=== PATIENT | male | born 1950 | race Caucasian/White ===

== ENCOUNTER → 2016-09-07 | Outpatient (CLI) | payer BC ==
[~2016-09-07] MED LIST: ALFU10TA30 PO; ALLO1TAB51 PO; ASCO10003 PO; CALC500T83 PO; CHOL1TAB4 PO; CHOL4POW12 PO; COENCAP9 PO; GLUC1TAB22 PO; GREE315C PO; MAGN400T5 PO; MULT-845 PEG; NSNN50 NAE; NXM/40 PO; OMEG12006 PO; POTA99TA PO; [UNRECOGNIZED DRUG - CODE] PO; vit b12 PO
[2016-09-07 14:21] LABS: BASO % 0.6 %; BASO ABS # 0.04 K/uL (0-0.2); COMPLETE YES; EOS % 3.4 %; HEMATOCRIT 46.5 % (42-52); IG% 0.3 %; LYMPH % 22.4 %; LYMPH ABS # 1.58 K/uL (1.2-3.4); MEAN CELL VOLUME 86.9 fL (80-100); MEAN CORPUSCULAR HEMOGLOBIN 30.1 pg (25-34); MEAN CORPUSCULAR HGB CONC 34.6 g/dl (32-36); MEAN PLATELET VOLUME 10.7 fL (7.4-10.4); MONO % 7.1 %; NEUT % 66.2 %; PLATELET COUNT 240 K/uL (130-400); RED BLOOD COUNT 5.35 M/uL (4.7-6.1); WHITE BLOOD COUNT 7.04 K/uL (4.8-10.8)
[2016-09-07 14:30] LABS: ALT/SGPT 31 U/L (12-78); BLOOD UREA NITROGEN 16 mg/dl (7-18); BUN/CREATININE RATIO 14.1 (10-20); CALCIUM 9.5 mg/dl (8.5-10.1); CARBON DIOXIDE 29 mmol/L (21-32); CHLORIDE 103 mmol/L (98-107); CHOLESTEROL 203 mg/dl (0-200); GLUCOSE 103 mg/dl (70-99); POTASSIUM 4.5 mmol/L (3.5-5.1); SODIUM 141 mmol/L (136-145); URIC ACID 4.4 mg/dl (2.6-7.2)
[2016-09-07 14:33] LABS: ALB/GLOB RATIO 1.1 (0.9-2); ALKALINE PHOSPHATASE 76 U/L (45-117); AST/SGOT 20 U/L (15-37); CHOLESTEROL/HDL RATIO 4.3; HDL CHOLESTEROL 47 mg/dl; LDL CHOLESTEROL CALCULATED 117 mg/dl; TRIGLYCERIDES 193 mg/dl (0-150); VERY LOW DENSITY LIPOPROT CALC 39 mg/dl
== END | disposition home or self-care (01) ==
LOC: C.LABBC 09:53
PROVIDERS: ATTEND Internal Medicine Geriatric Medicine
DX: M10.9 Gout, unspecified (principal); K21.9 Gastro-esophageal reflux disease without esophagitis; M19.90 Unspecified osteoarthritis, unspecified site; E78.5 Hyperlipidemia, unspecified; I10 Essential (primary) hypertension; R73.9 Hyperglycemia, unspecified

== ENCOUNTER → 2017-11-23 | Outpatient (CLI) | payer OTHER ==
[~2017-11-23] MED LIST changes: +ALFU10TA2 PO; -ALFU10TA30 PO
== END | disposition home or self-care (01) ==
LOC: C.LABBC 09:31
PROVIDERS: ATTEND Specialist
DX: R97.20 Elevated prostate specific antigen [PSA] (principal)

== ENCOUNTER → 2018-02-02 | Outpatient (CLI) | payer OTHER ==
[~2018-02-02] MED LIST changes: +OPTIRAY 320 IV PRN
--- NOTE | 2018-02-02 10:32 | DIAGNOSTIC IMAGING REPORT ---
ABD/PELVIS IV AND ORAL CONT CLINICAL HISTORY: 67 years-old Male presenting with R10.32 Abdominal discomfort in left lower quadrant. TECHNIQUE: Multidetector CT of the abdomen and pelvis was performed after the administration of oral and intravenous contrast. IV contrast: 94 mL of Optiray 320. A dose lowering technique was used consistent with the principles of ALARA (as low as reasonably achievable). COMPARISON: 10/29/2014. CT DOSE (mGy.cm): The estimated cumulative dose is 399.46 mGy.cm. FINDINGS: Segment Producer topogram: Unremarkable. Lung bases: Minimal basilar opacities, likely atelectasis. Trace bilateral pleural effusions. Multichamber enlargement of the heart. Coronary artery calcification. No pericardial effusion. Liver: Normal morphology. No liver lesion. Patent hepatic vasculature. Biliary: No intrahepatic or extrahepatic biliary ductal dilatation. Normal gallbladder. Pancreas: Mild parenchymal atrophy. Spleen: Normal. Adrenal glands: Normal. Kidneys and ureters: Normal. No hydronephrosis. Bladder: Circumferential bladder wall thickening. Pelvic organs: Prostate enlargement likely secondary to benign prostatic hyperplasia. Bowel: Limited diverticulosis of the distal sigmoid colon. Mild stool burden noted throughout the normal caliber colon. The appendix is normal. No bowel obstruction. Peritoneal cavity: No free fluid or intraperitoneal gas. Lymph nodes: No enlarged lymph nodes in the abdomen or pelvis. Vasculature: Atherosclerosis of the normal caliber abdominal aorta. IVC patent. Abdominal wall: Bilateral gynecomastia. Musculoskeletal: Degenerative changes of the spine. IMPRESSION: 1. Bibasilar atelectasis with trace bilateral pleural effusions. 2. No acute intra-abdominal pathology. Specifically, the left lower quadrant and is normal appearing. 3. Limited diverticulosis. No evidence of diverticulitis. 4. Chronic bladder outlet obstruction from prostatomegaly. Electronically signed by: Tom Lorenzana M.D. 02/02/2018 10:31 AM Dictated Date/Time: 02/02/2018 10:25 AM
== END | disposition home or self-care (01) ==
LOC: C.CTS 09:55
PROVIDERS: ATTEND Nurse Practitioner Adult Health
DX: R10.32 Left lower quadrant pain (principal); J98.11 Atelectasis; J90 Pleural effusion, not elsewhere classified; K57.90 Diverticulosis of intestine, part unspecified, without perforation or abscess without bleeding; N40.1 Benign prostatic hyperplasia with lower urinary tract symptoms

== ENCOUNTER 2024-04-08 17:54 | Inpatient (IN) ==
[2024-04-08 18:46] LABS: Basophils # (auto) 0.05 K/uL (0.00-0.20); Basophils % (auto) 0.4 %; Eosinophils # (auto) 0.35 K/uL (0.00-0.50); Eosinophils % (auto) 2.8 %; Hematocrit (blood only) 39.3 % (42.0-52.0); Hemoglobin 13.3 g/dl (14.0-18.0); Immature Granulocytes # (auto) 0.04 K/uL (0.01-0.20); Immature Granulocytes % (auto) 0.3 %; Lymphocytes # (auto) 1.34 K/uL (1.20-3.40); Lymphocytes % (auto) 10.7 %; Mean Corpuscular Hemoglobin 29.8 pg (25.0-34.0); Mean Corpuscular Hgb Conc 33.8 g/dL (32.0-36.0); Mean Corpuscular Volume 87.9 fL (80.0-100.0); Mean Platelet Volume 10.5 fL (9.4-12.4); Monocytes # (auto) 1.45 K/uL (0.11-0.59); Monocytes % (auto) 11.6 %; Neutrophils # (auto) 9.28 K/uL (1.40-6.50); Neutrophils % (auto) 74.2 %; Platelet Count 213 K/uL (130-400); RDW Coefficient of Variation 14.5 % (11.5-14.5); RDW Standard Deviation 46.8 fL (36.4-46.3); Red Blood Count 4.47 M/uL (4.70-6.10); White Blood Count 12.51 K/ul (4.8-10.8)
[2024-04-08 19:29] LABS: Alanine Aminotransferase 4 U/L (7-52); Albumin Globulin Ratio 1.6 (0.9-2); Albumin Level 4.3 gm/dl (3.4-5.0); Alkaline Phosphatase 65 U/L (34-104); Anion Gap 12 (3-11); Aspartate Aminotransferase 24 U/L (13-39); BUN Creatinine Ratio 10.1 (10-20); Bilirubin,Total 0.5 mg/dl (0.2-1.0); Blood Urea Nitrogen 77 mg/dl (6-23); Calcium 9.8 mg/dl (8.6-10.3); Carbon Dioxide 24 mmol/L (21-32); Chloride 96 mmol/L (98-107); Est GFR (African American) 7.3 ml/min; Est GFR (Non-African American) 6.3 ml/min; Globulin 2.7 gm/dl (2.5-4.0); Glucose 103 mg/dl (70-99(Fasting)); Potassium 5.7 mmol/L (3.5-5.1); Sodium 132 mmol/L (136-145)
[2024-04-08] MEDS: CEFEPIME 2,000 MG/20 ML VIAL IV STA (19:35)
[2024-04-08] MEDS: SODIUM CHLORIDE 0.9% 1,000 ML IV ONE (19:36)
[2024-04-08] MEDS: LIDOCAINE 2% JELLY 5 ML TUBE EXT ONE ×2 (19:36)
[2024-04-08 19:44] LABS: Magnesium 3.5 mg/dl (1.7-2.4)
--- NOTE | 2024-04-08 19:45 | Emergency Department Note ---
Impression & Plan ARF (acute renal failure), Acute urinary obstruction, Leukocytosis, Edema of penis, Acute hyperkalemia ED Provider Note NAME: FIORELLA KNOWLES AGE: 73 SEX: M : 1950 ARRIVES VIA: Walk-In INFORMANT: [Patient][] ED PROVIDER(S): [Gabriel Freed MD] CHIEF COMPLAINT: Unable to void HISTORY OF PRESENT ILLNESS: The patient is a 73-year-old male with a history of enlarged prostate. As per his , he was tired, sleepy, seemed short of breath and was just not quite himself for the last several days. The patient did notice a swelling to his groin and penis. He went to the family doctor's office and was prescribed Bactrim for a UTI. He has been on Bactrim for about 3 days. As per the patient and his , he is unable to void. He feels he has to go but really cannot make any urine. There has been no flank pain, no fever, no chills or cough. No shortness of breath. He has never in the past required a Ugarte catheter. PMHx/PSHx/Social Hx: See Below PHYSICAL EXAM: GENERAL: Patient is in no acute distress. HEENT: No acute trauma, normocephalic atraumatic, mucous membranes moist, no nasal congestion. NECK: No stridor, no adenopathy, no meningismus, trachea is midline. LUNGS: Clear to auscultation bilaterally, no wheeze, no rhonchi, breath sounds equal. Breath sounds diminished bilaterally. HEART: Without murmurs gallops or rubs, regular rate and rhythm. ABDOMEN: Soft, tender in the area of the bladder. No upper abdominal discomfort. EXTREMITIES: No cyanosis, full range of motion of all the joints without pain or difficulty. NEUROLOGIC: Oriented x 3, no acute motor or sensory deficits, no focal weakness. SKIN: No jaundice, no diaphoresis. Groin: He has scrotal and penile edema no warmth or erythema to suggest cellulitis. DIFFERENTIAL DIAGNOSIS: Urinary obstruction, renal failure, dehydration, electrolyte amounts, UTI, cellulitis, among others. EMERGENCY DEPARTMENT PROCEDURES: MEDICAL DECISION MAKING: There is a mild leukocytosis, this could be consistent with infection or the stress of his presentation. A mild anemia was seen. There was a normal platelet count. There was evidence for acute renal failure with a creatinine of 7.63. Potassium was mildly elevated at 5.7. Sodium somewhat low at 132. Lactic acid level was not elevated making severe sepsis unlikely. There was no concerning liver enzyme elevation. Urinalysis did not show findings of infection. Abdominal and pelvis CT showed some hydronephrosis but there was no obvious urinary obstruction. The Ugarte catheter was in position and the bladder was decompressed. The prostate was quite enlarged by CT imaging. On exam, the patient did have some penile edema. He was not toxic, he was not febrile. The patient was aggressively managed. Urethral lidocaine was ordered. The patient had a Ugarte catheter placed, significant urine did drain. He received 1.5 L of IV saline for hydration. He was given IV cefepime as antibiotic coverage. The patient is in acute renal failure from a urinary obstruction. The obstruction has been relieved. He will require a hospital stay for fluid hydration and monitoring. I spoke with the patient and case management. The on-call hospitalist was consulted. Prior/Outside records/notes reviewed: None Imaging/x-ray results per my interpretation: Chronic Medical/Social conditions affecting care: Advanced age, history of enlarged prostate. Care/Management discussed with: Case management, the on-call hospitalist. Level of care consideration(s): After review of the information above and other included data: --I believe the patient requires escalation of care to admission Critical Care Note: I have personally spent 39 minutes of critical care time in the direct management of this patient. This includes bedside care, interpretation of diagnostic studies, and testing, discussion with consultants, patient, and family members, and other required patient management activities. This 39 minutes is in excess of all separately billable procedures. DISPOSITION: Admission Past Med/Surg History Problem List (Updated 04/08/24 @ 21:45 by Gabriel Freed MD) Acute hyperkalemia (Acute) Edema of penis (Acute) Leukocytosis (Acute) Acute urinary obstruction (Acute) ARF (acute renal failure) (Acute) Agatston coronary artery calcium score greater than 400 Gait disturbance Statin myopathy Health care maintenance Right thyroid nodule Restrictive airway disease Low ferritin Allergic rhinitis with postnasal drip Kyphosis Hypersomnia RLS (restless legs syndrome) Insomnia Excessive daytime sleepiness SOBOE (shortness of breath on exertion) Nocturnal hypoxemia Sleep disturbance Elevated blood pressure reading with diagnosis of hypertension Hyperglycemia Osteoarthritis (Acute) Aortic atherosclerosis Lumbar back pain Lichen simplex chronicus GERD (gastroesophageal reflux disease) Chronic acid suppression with PPI. EGD (2009) mild gastritis. Hx peptic ulcer disease. Hyperlipidemia Sialolithiasis Essential tremor BPH (benign prostatic hyperplasia) Hx urinary retention. Followed by urology (Dr. [place], [place]). Chronically elevated PSAs, biopsy (2005) negative for malignancy. Managed medically with dutasteride Gout Parkinson disease (Acute) Coronary artery calcification (Acute) - CT study performed 03/27/2019: Calcium score 1104. angiography suggested 25-49 percent stenosis of the proximal and mid RCA. Calcium score in the LAD with 715, calcium score in the RCA was 387 the mid LAD was not evaluated due to heavy calcification. - Negative stress test 2019 - No ischemia on 2020 stress test but did not reach target HR Medical History Right inguinal hernia Cough 08/04/23- contines to have lingering cough but is improving. recently treated w/ Augmentin; completed abx 08/03/23 per pt (tested negative for Covid, flu and RSV on 07/27/23) Poor historian very difficult to understand History of shingles History of Lyme disease hx- treated Dyslipidemia History of peptic ulcer disease Eczema Hypertension Surgical History H/O right inguinal hernia repair (08/19/23) Hx of colonoscopy Hx of hernia repair H/O prostate biopsy Family History Father Heart disease Gout Myocardial infarction Mother Breast cancer Denies family history of Colon cancer Ovarian cancer Prostate cancer Social History Smoking Status: Unknown if ever smoked Second Hand Exposure: No; Do You Dip or Chew Tobacco: No; Hx Alcohol Use: Yes Hx Substance Use: No Preferred Language: Kyrgyz Communication Ability: Effective Visual Impairment: No Limitations Hearing Ability: Normal Crackling Press Operator Required: No Beliefs That Will Affect Care: None marital status: Current Living Situation: Spouse current occupational status: employed current occupation: Professor Feels Safe at Home: Yes Childhood Exposure to Second-Hand Smoke: No Dental Care, Regularly: Yes Physical Activity Frequency: Daily Seatbelt Use: always Sunscreen Use: Yes Assistive Devices: Glasses Allergies Allergies Allergy/AdvReac Type Severity Reaction Status Date / Time atorvastatin Allergy Unknown Muscle Pain Verified 04/05/24 15:38 procaine Allergy Unknown unknown Verified 04/05/24 15:38 simvastatin Allergy Unknown Muscle Pain Verified 04/05/24 15:38 Home Meds Home Medications Medication Instructions Recorded Confirmed multivit with min-folic 1 tab PO QAM 02/08/19 04/05/24 acid-lutein 400 mcg-250 mcg chewable tablet (Centrum Silver) calcium carbonate 600 mg PO QAM 02/13/19 04/05/24 cholecalciferol (vitamin D3) 125 5,000 units PO QAM 02/13/19 04/05/24 mcg (5,000 unit) capsule cyanocobalamin (vitamin B-12) 100 100 mcg PO QAM 02/13/19 04/05/24 mcg tablet dutasteride 0.5 mg capsule 0.5 mg PO HS 02/13/19 04/05/24 magnesium oxide 400 mg (241.3 mg 400 mg PO HS 02/13/19 04/05/24 magnesium) tablet ascorbate calcium (vitamin C) 500 500 mg PO QAM 11/27/20 04/05/24 mg tablet ferrous sulfate 325 mg (65 mg 325 mg PO DAILY 11/27/20 04/05/24 iron) tablet glucosamine HCl 1,500 mg tablet 1,500 mg PO BID 11/27/20 04/05/24 terazosin 10 mg capsule 10 mg PO BID 11/27/20 04/05/24 selegiline HCl 5 mg capsule 5 mg PO QAM 11/03/22 04/05/24 aspirin 81 mg tablet,delayed 81 mg PO QAM 11/20/22 04/05/24 release carbidopa 25 mg-levodopa 100 mg 1 tab PO Q4H 11/20/22 04/05/24 tablet acetaminophen 500 mg tablet 500 mg PO Q6H PRN Pain 11/25/22 04/05/24 docusate sodium 100 mg capsule 100 mg PO BID 11/25/22 04/05/24 allopurinol 100 mg tablet 200 mg PO HS 09/26/23 04/05/24 famotidine 40 mg tablet 40 mg PO HS 09/26/23 04/05/24 Previous Rx's Medication Instructions Recorded econazole 1 % topical cream 1 appln topical DAILY PRN itching 07/02/19 #15 grams fluocinonide 0.1 % topical cream 1 appln topical BID PRN itching 07/02/19 #60 grams Incentive Spirometer #1 ea 11/11/20 mometasone 50 mcg/actuation nasal 2 spray intranasal DAILY #3 BTLS 04/11/23 spray ezetimibe 10 mg tablet 10 mg PO QAM #90 tabs 10/03/23 esomeprazole magnesium 40 mg 40 mg PO BID #180 caps 02/07/24 capsule,delayed release evolocumab 140 mg/mL subcutaneous 140 mg subcut Q14D #2 mL 03/06/24 pen injector (Lily Garner) sulfamethoxazole 800 1 tab PO BID 7 days #14 tabs 04/05/24 mg-trimethoprim 160 mg tablet (Bactrim DS) Results & Data (ED) Vital Signs Vital Signs - 24 hr 04/08/24 18:08 04/08/24 19:34 04/08/24 19:42 Temperature 36.5 C Temperature Source Temporal Artery Scan Pulse Rate 82 76 Pulse Rate [Apical] 70 Pulse Rate from SpO2 Sensor 77 Pulse Rhythm Regular Pulse Rhythm [Apical] Regular Respiratory Rate 20 18 21 Respiratory Effort / Characteristics Non-Labored Spontaneous Non-Labored Spontaneous Respiratory Depth Normal Normal Respiratory Pattern Regular Blood Pressure 124/78 Blood Pressure [Right Arm] 129/73 Blood Pressure Mean 93 Blood Pressure Mean [Right Arm] 91 Pulse Oximetry 97 91 91 Oxygen Delivery Method Room Air Room Air Sepsis Recent Fever Within 48 Hours No Sepsis New/Unexplained Change in Mental Status No Sepsis Action Taken by Nursing No Action Required 04/08/24 19:53 04/08/24 20:12 04/08/24 20:15 Temperature Temperature Source Pulse Rate 77 80 Pulse Rate [Apical] Pulse Rate from SpO2 Sensor 77 80 Pulse Rhythm Pulse Rhythm [Apical] Respiratory Rate 18 16 Respiratory Effort / Characteristics Respiratory Depth Respiratory Pattern Blood Pressure 143/76 H Blood Pressure [Right Arm] Blood Pressure Mean 107 Blood Pressure Mean [Right Arm] Pulse Oximetry 93 92 Oxygen Delivery Method Sepsis Recent Fever Within 48 Hours Sepsis New/Unexplained Change in Mental Status Sepsis Action Taken by Nursing 04/08/24 20:30 04/08/24 20:39 04/08/24 20:47 Temperature Temperature Source Pulse Rate 84 82 Pulse Rate [Apical] Pulse Rate from SpO2 Sensor 82 82 Pulse Rhythm Pulse Rhythm [Apical] Respiratory Rate 22 20 Respiratory Effort / Characteristics Respiratory Depth Respiratory Pattern Blood Pressure 131/75 Blood Pressure [Right Arm] Blood Pressure Mean 89 Blood Pressure Mean [Right Arm] Pulse Oximetry 92 91 Oxygen Delivery Method Sepsis Recent Fever Within 48 Hours Sepsis New/Unexplained Change in Mental Status Sepsis Action Taken by Nursing 04/08/24 20:51 04/08/24 21:00 Temperature Temperature Source Pulse Rate 81 Pulse Rate [Apical] 84 Pulse Rate from SpO2 Sensor 81 Pulse Rhythm Pulse Rhythm [Apical] Respiratory Rate 18 19 Respiratory Effort / Characteristics Respiratory Depth Respiratory Pattern Blood Pressure Blood Pressure [Right Arm] 128/74 Blood Pressure Mean Blood Pressure Mean [Right Arm] 92 Pulse Oximetry 92 97 Oxygen Delivery Method Sepsis Recent Fever Within 48 Hours Sepsis New/Unexplained Change in Mental Status Sepsis Action Taken by [facility] Medications Current Medication List: was personally reviewed by me Laboratory Data Attestation: I reviewed the patient's lab results. 04/08/24 18:31 04/08/24 18:31 Lab Results 04/08/24 04/08/24 04/08/24 Range/Units 18:31 19:24 19:27 WBC 12.51 H (4.8-10.8) K/ul RBC 4.47 L (4.70-6.10) M/uL Hgb 13.3 L (14.0-18.0) g/dl Hct 39.3 L (42.0-52.0) % MCV 87.9 (80.0-100.0) fL MCH 29.8 (25.0-34.0) pg MCHC 33.8 (32.0-36.0) g/dL RDW Std Deviation 46.8 H (36.4-46.3) fL RDW Coeff of Dwayne 14.5 (11.5-14.5) % Plt Count 213 (130-400) K/uL MPV 10.5 (9.4-12.4) fL Immature Gran % (Auto) 0.3 % Neut % (Auto) 74.2 % Lymph % (Auto) 10.7 % Anderson % (Auto) 11.6 % Eos % (Auto) 2.8 % Baso % (Auto) 0.4 % Neut # (Auto) 9.28 H (1.40-6.50) K/uL Lymph # (Auto) 1.34 (1.20-3.40) K/uL Anderson # (Auto) 1.45 H (0.11-0.59) K/uL Eos # (Auto) 0.35 (0.00-0.50) K/uL Baso # (Auto) 0.05 (0.00-0.20) K/uL Immature Gran # (Auto) 0.04 (0.01-0.20) K/uL Sodium 132 L (136-145) mmol/L Potassium 5.7 H (3.5-5.1) mmol/L Chloride 96 L (98-107) mmol/L Carbon Dioxide 24 (21-32) mmol/L Anion Gap 12 H (3-11) BUN 77 H (6-23) mg/dl Creatinine 7.63 H* (0.6-1.4) mg/dl Est Cr Clr Drug Dosing Not Reportable Est GFR ( Amer) 7.3 ml/min Est GFR (Non-Af Amer) 6.3 ml/min BUN/Creatinine Ratio 10.1 (10-20) Glucose 103 H (70-99(Fasting)) mg/dl Lactate 1.0 (0.4-2.0) mmol/L Calcium 9.8 (8.6-10.3) mg/dl Magnesium 3.5 H (1.7-2.4) mg/dl Total Bilirubin 0.5 (0.2-1.0) mg/dl AST 24 (13-39) U/L ALT 4 L (7-52) U/L Alkaline Phosphatase 65 (34-104) U/L Total Protein 7.0 (6.0-8.3) gm/dl Albumin 4.3 (3.4-5.0) gm/dl Globulin 2.7 (2.5-4.0) gm/dl Albumin/Globulin Ratio 1.6 (0.9-2) Urine Color Yellow Urine Appearance Clear (Clear) Urine pH 6.5 (4.5-7.5) Ur Specific [place] 1.019 (1.000-1.030) Urine Protein Negative (Negative) Urine Glucose (UA) Negative (Negative) Urine Ketones Negative (Negative) Urine Blood Negative (Negative) Urine Nitrite Negative (Negative) Urine Bilirubin Negative (Negative) Urine Urobilinogen Negative (Negative) Ur Leukocyte Esterase Trace H (Negative) Urine WBC (Auto) 0-5 (0-5) /hpf Urine RBC (Auto) 3-5 H (0-2) /hpf U Hyaline Cast (Auto) 0-2 (0-2) /lpf U Epithel Cells (Auto) 0-2 (0-2) /hpf Urine Bacteria (Auto) None Seen (None Seen) Administered Medications Discontinued Medications Sodium Chloride (Nss) 1,000 mls @ 999 mls/hr IV .Q1H1M ONE Stop: 04/08/24 20:11 Last Infusion: 04/08/24 20:38 Dose: Infused Documented By: Admin: 04/08/24 19:36 Dose: 999 mls/hr Documented By: VENUS Cefepime HCl (Maxipime) 2,000 mg in 20 mls @ 5 mls/min IV NOW STA; Protocol Stop: 04/08/24 19:14 Last Admin: 04/08/24 19:35 Dose: 5 mls/min Documented By: VENUS Sodium Chloride (Nss) 500 mls @ 999 mls/hr IV .Q31M ONE Stop: 04/08/24 21:09 Last Infusion: 04/08/24 21:32 Dose: Infused Documented By: Admin: 04/08/24 20:45 Dose: 999 mls/hr Documented By: VENUS Lidocaine HCl (Lidocaine 2% Jelly 5 Ml Tube) 5 ml EXT NOW ONE Stop: 04/08/24 19:12 Last Admin: 04/08/24 19:36 Dose: 5 ml Documented By: VENUS Lidocaine HCl (Lidocaine 2% Jelly 5 Ml Tube) Confirm Administered Dose 5 ml EXT .STK-MED ONE Stop: 04/08/24 19:15 Last Admin: 04/08/24 19:36 Dose: Not Given Documented By: VENUS Imaging Data Radiologist's Impression: Abdomen/Pelvis CT 04/08/24 19:11 Exam(s): CT ABDOMEN + PELVIS Without Contrast EXAM: CT Abdomen and Pelvis Without Intravenous Contrast CLINICAL HISTORY: Reason for exam: poss urinary obstruction. TECHNIQUE: Axial computed tomography images of the abdomen and pelvis without intravenous contrast. CTDI is 24.19 mGy and DLP is 1180.35 mGy-cm. Automated exposure control was utilized for the study. A dose lowering technique was utilized adhering to the principles of ALARA. COMPARISON: CT abdomen/pelvis: 11/20/2022 FINDINGS: Lung bases: Cardiomegaly. Bibasilar interval increased consolidative atelectasis/infiltrates.. Posteriorly trace right pleural effusion and left pleural thickening ABDOMEN: Analysis of abdominal/pelvic viscera and vascular structures is limited in absence of IV contrast. Liver: Unremarkable. Gallbladder and bile ducts: Unremarkable. No calcified stones. No ductal dilation. Pancreas: Diffusely mild/moderately atrophic pancreas. No ductal dilation. Spleen: No splenomegaly. Adrenals: Unremarkable. No mass. Kidneys and ureters: Mildly dilated bilateral extrarenal pelvis. Mild fullness of the right renal collecting system. No urinary tract calculi are seen. Bilateral perinephric fat stranding.. Stomach and bowel: A moderately large size hiatal hernia with organoaxial rotation . Normal caliber small bowel loops. Moderately large volume stool/gas is seen in a mildly distended ascending and transverse colon. Segmental diffuse spasm of the descending colon and sigmoid. Sigmoid diverticulosis. No evidence of acute diverticulitis PELVIS: Appendix: No acute findings in the region of the appendix. Bladder: There is an empty urinary bladder with a Ugarte's catheter in situ. Uniform bladder wall thickening and perivesical mild fat stranding, concerning for bladder outlet obstruction versus cystitis. Reproductive: Severe prostatomegaly with extension into the bladder base.. ABDOMEN and PELVIS: Intraperitoneal space: No free air. No significant fluid collection. Bones/joints: No acute fracture. No dislocation. Moderately severe lumbar levoscoliosis and multilevel advanced degenerative disc/endplates and posterior elements spondylosis.. Soft tissues: Anterior lower pelvic wall subcutaneous fat stranding. Likely a small right inguinal hernia. Vasculature: Diffuse atherosclerotic tortuosity/elongation and scattered calcified plaque formation of the normal caliber aortoiliac vasculature. Lymph nodes: No lymphadenopathy by CT size criteria. Multiple small bilateral inguinal/groin lymph nodes. IMPRESSION: No urinary tract calculi are seen. Mildly dilated bilateral extrarenal pelvis. Mild fullness of the right renal collecting system. Severe prostatomegaly. An empty urinary bladder with a Ugarte's catheter. Uniform bladder wall thickening and perivesical mild fat stranding, concerning for bladder outlet obstruction versus cystitis. Clinical correlation recommended. A moderately large size hiatal hernia. Moderately large volume stool/gas is seen in a mildly distended ascending and transverse colon. Sigmoid diverticulosis. Lung bases: Interval increase in bibasilar consolidative atelectasis/infiltrates. Moderately severe lumbar levoscoliosis. Multilevel advanced degenerative spondylosis. . Electronically signed by: Sandy Guadarrama MD, MARIA 04/08/24 21:22 PM Discharge Plan Visit Data Chief Complaint: Unable to Void Stated Complaint: UNABLE TO VOID ED Provider: Gabriel Freed Discharge Problem: ARF (acute renal failure), Acute urinary obstruction, Leukocytosis, Edema of penis, Acute hyperkalemia Patient Disposition: Admitted As Inpatient Condition: Serious Forms Stand Alone Forms: My [facility] [place] [employer] Prescriptions Prescriptions: No Action mometasone 50 mcg/actuation spray,non-aerosol 2 spray intranasal DAILY Qty: 3 3RF Rx Instructions: administer into each nostril ezetimibe 10 mg tablet 10 mg PO QAM Qty: 90 3RF esomeprazole magnesium 40 mg capsule,delayed release(DR/EC) 40 mg PO BID Qty: 180 3RF Repatha SureClick 140 mg/mL pen injector 140 mg subcut Q14D Qty: 2 5RF acetaminophen 500 mg tablet 500 mg PO Q6H PRN (Reason: Pain) Rx Instructions: Per patient he is taking 2 tablet every 6 hours as needed docusate sodium 100 mg capsule 100 mg PO BID Rx Instructions: x 5 days selegiline HCl 5 mg capsule 5 mg PO QAM Patient Comments: currently on hold for procedures Rx Instructions: administer with breakfast and lunch Centrum Silver 400-250 mcg tablet,chewable 1 tab PO QAM glucosamine HCl 1,500 mg tablet 1,500 mg PO BID (DME) Incentive Spirometer Misc See Rx Instructions .MEDSUPPLY Qty: 1 0RF Rx Instructions: As directed calcium carbonate 600 mg calcium (1,500 mg) tablet 600 mg PO QAM cholecalciferol (vitamin D3) 5,000 unit capsule 5,000 units PO QAM cyanocobalamin (vitamin B-12) 100 mcg tablet 100 mcg PO QAM dutasteride 0.5 mg capsule 0.5 mg PO HS magnesium oxide 400 mg (241.3 mg magnesium) tablet 400 mg PO HS terazosin 10 mg capsule 10 mg PO BID econazole 1 % cream 1 appln TOP DAILY PRN (Reason: itching) Qty: 15 0RF fluocinonide 0.1 % cream 1 appln TOP BID PRN (Reason: itching) Qty: 60 1RF ferrous sulfate 325 mg (65 mg iron) tablet 325 mg PO DAILY ascorbate calcium (vitamin C) 500 mg tablet 500 mg PO QAM sulfamethoxazole-trimethoprim [Bactrim DS] 800-160 mg tablet 1 tab PO BID 7 Days Qty: 14 0RF carbidopa-levodopa 25-100 mg tablet 1 tab PO Q4H aspirin 81 mg Tablet,Delayed Release (Dr/Ec) 81 mg PO QAM famotidine 40 mg tablet 40 mg PO HS allopurinol 100 mg tablet 200 mg PO HS Referrals Referrals: Abbe An MD [Primary Care Provider] - Discharge Problem: ARF (acute renal failure) Qualifiers: Acute renal failure type: unspecified Qualified Code(s): N17.9 - Acute kidney failure, unspecified Leukocytosis Qualifiers: Leukocytosis type: unspecified Qualified Code(s): D72.829 - Elevated white blood cell count, unspecified
[2024-04-08 19:52] LABS: Appearance Urine Clear (Clear); Bacteria Urine Automated None Seen (None Seen); Bilirubin Urine Negative (Negative); Blood Urine Negative (Negative); Cast Urine Automated 0-2 /lpf (0-2); Color Urine Yellow; Epithelial Cell Urine Auto 0-2 /hpf (0-2); Glucose Urine UA Negative (Negative); Ketones Urine Negative (Negative); Leukocyte Esterase Urine Trace (Negative); Nitrite Urine Negative (Negative); Protein Urine Negative (Negative); Specific Gravity Urine 1.019 (1.000-1.030); Urobilinogen Urine Negative (Negative); WBC Urine Automated 0-5 /hpf (0-5); pH Urine 6.5 (4.5-7.5)
[2024-04-08] MEDS: SODIUM CHLORIDE 0.9% 500 ML IV ONE (20:45)
--- NOTE | 2024-04-08 21:23 | CT Scan Report ---
Exam(s): CT ABDOMEN + PELVIS Without Contrast EXAM: CT Abdomen and Pelvis Without Intravenous Contrast CLINICAL HISTORY: Reason for exam: poss urinary obstruction. TECHNIQUE: Axial computed tomography images of the abdomen and pelvis without intravenous contrast. CTDI is 24.19 mGy and DLP is 1180.35 mGy-cm. Automated exposure control was utilized for the study. A dose lowering technique was utilized adhering to the principles of ALARA. COMPARISON: CT abdomen/pelvis: 11/20/2022 FINDINGS: Lung bases: Cardiomegaly. Bibasilar interval increased consolidative atelectasis/infiltrates.. Posteriorly trace right pleural effusion and left pleural thickening ABDOMEN: Analysis of abdominal/pelvic viscera and vascular structures is limited in absence of IV contrast. Liver: Unremarkable. Gallbladder and bile ducts: Unremarkable. No calcified stones. No ductal dilation. Pancreas: Diffusely mild/moderately atrophic pancreas. No ductal dilation. Spleen: No splenomegaly. Adrenals: Unremarkable. No mass. Kidneys and ureters: Mildly dilated bilateral extrarenal pelvis. Mild fullness of the right renal collecting system. No urinary tract calculi are seen. Bilateral perinephric fat stranding.. Stomach and bowel: A moderately large size hiatal hernia with organoaxial rotation . Normal caliber small bowel loops. Moderately large volume stool/gas is seen in a mildly distended ascending and transverse colon. Segmental diffuse spasm of the descending colon and sigmoid. Sigmoid diverticulosis. No evidence of acute diverticulitis PELVIS: Appendix: No acute findings in the region of the appendix. Bladder: There is an empty urinary bladder with a Ugarte's catheter in situ. Uniform bladder wall thickening and perivesical mild fat stranding, concerning for bladder outlet obstruction versus cystitis. Reproductive: Severe prostatomegaly with extension into the bladder base.. ABDOMEN and PELVIS: Intraperitoneal space: No free air. No significant fluid collection. Bones/joints: No acute fracture. No dislocation. Moderately severe lumbar levoscoliosis and multilevel advanced degenerative disc/endplates and posterior elements spondylosis.. Soft tissues: Anterior lower pelvic wall subcutaneous fat stranding. Likely a small right inguinal hernia. Vasculature: Diffuse atherosclerotic tortuosity/elongation and scattered calcified plaque formation of the normal caliber aortoiliac vasculature. Lymph nodes: No lymphadenopathy by CT size criteria. Multiple small bilateral inguinal/groin lymph nodes. IMPRESSION: No urinary tract calculi are seen. Mildly dilated bilateral extrarenal pelvis. Mild fullness of the right renal collecting system. Severe prostatomegaly. An empty urinary bladder with a Ugarte's catheter. Uniform bladder wall thickening and perivesical mild fat stranding, concerning for bladder outlet obstruction versus cystitis. Clinical correlation recommended. A moderately large size hiatal hernia. Moderately large volume stool/gas is seen in a mildly distended ascending and transverse colon. Sigmoid diverticulosis. Lung bases: Interval increase in bibasilar consolidative atelectasis/infiltrates. Moderately severe lumbar levoscoliosis. Multilevel advanced degenerative spondylosis. . Electronically signed by: Sandy Guadarrama MD, DABR 04/08/24 21:22 PM
--- NOTE | 2024-04-08 22:24 | History & Physical Report ---
Date of Service April 08, 2024 Assessment & Plan (1) ARF (acute renal failure): (2) Acute urinary obstruction: (3) Acute hyperkalemia: (4) Gait disturbance: (5) GERD (gastroesophageal reflux disease): (6) Hyperlipidemia: (7) BPH (benign prostatic hyperplasia): (8) Parkinson disease: (9) Coronary artery calcification: (10) RLS (restless legs syndrome): (11) Nocturnal hypoxemia: Plan Acute renal failure/BPH with LUTS/acute urinary retention/hyperkalemia- Creatinine upon admission 7.63, with base 1.10 Potassium 5.7 Will continue Ugarte catheter placed in the emergency department N.p.o. except medications, until assessed by urology, in case a procedure is indicated in the a.m. Continue the terazosin 10 mg p.o. twice daily He has received 2 L normal saline bolus from the ED Continue normal saline at 80 mL/h x 1 additional liter Follow urine culture and sensitivity Hold Bactrim, which he was on for 3 days, as likely contributed to the acute renal failure Continue cefepime begun in ED Patient has been on dutasteride daily, which is nonformulary, and may use own if preferred Repeat laboratories in the a.m. Consult urology regarding bladder outlet obstruction and Ugarte catheter, if creatinine does not improve significantly to morning, can consult nephrology at that time Parkinson's- Continue carbidopa-levodopa, and selegiline GERD- Changing omeprazole to pantoprazole, and continue famotidine Gout- Continue allopurinol History of Present Illness Chief Complaint: The patient presents to the emergency department due to increasing difficulty with urinating over the past several days, despite having been placed on Bactrim for urinary tract infection at his doctor's office 3 days ago. Primary Care Provider: Abbe An MD The patient is a 73-year-old male with a past medical history including gait disturbance, statin myopathy, right thyroid nodule, restrictive airway disease, allergic rhinitis, RLS, excessive daytime sleepiness, GERD, hyperlipidemia, BPH, gout, Parkinson disease and coronary artery calcification. He presents to the emergency department with concerns regarding increased difficulty to urinate over the past several days. He had been to see his outpatient doctor 3 days ago and was placed on Bactrim, which has been taking for 3 days. In the emergency department, he had a Ugarte catheter placed, and began to drain light yellow- colored urine. Allergies Allergy/AdvReac Type Severity Reaction Status Date / Time atorvastatin Allergy Unknown Muscle Pain Verified 04/05/24 15:38 procaine Allergy Unknown unknown Verified 04/05/24 15:38 simvastatin Allergy Unknown Muscle Pain Verified 04/05/24 15:38 Home Medications Medication Instructions Recorded Confirmed Type multivit with min-folic 1 tab PO QAM 02/08/19 04/05/24 History acid-lutein 400 mcg-250 mcg chewable tablet (Centrum Silver) calcium carbonate 600 mg PO QAM 02/13/19 04/05/24 History cholecalciferol (vitamin D3) 125 5,000 units PO QAM 02/13/19 04/05/24 History mcg (5,000 unit) capsule cyanocobalamin (vitamin B-12) 100 100 mcg PO QAM 02/13/19 04/05/24 History mcg tablet dutasteride 0.5 mg capsule 0.5 mg PO HS 02/13/19 04/05/24 History magnesium oxide 400 mg (241.3 mg 400 mg PO HS 02/13/19 04/05/24 History magnesium) tablet econazole 1 % topical cream 1 appln topical DAILY PRN itching 07/02/19 04/05/24 Rx #15 grams fluocinonide 0.1 % topical cream 1 appln topical BID PRN itching 07/02/19 04/05/24 Rx #60 grams Incentive Spirometer #1 ea 11/11/20 04/05/24 Rx ascorbate calcium (vitamin C) 500 500 mg PO QAM 11/27/20 04/05/24 History mg tablet ferrous sulfate 325 mg (65 mg 325 mg PO DAILY 11/27/20 04/05/24 History iron) tablet glucosamine HCl 1,500 mg tablet 1,500 mg PO BID 11/27/20 04/05/24 History terazosin 10 mg capsule 10 mg PO BID 11/27/20 04/05/24 History selegiline HCl 5 mg capsule 5 mg PO QAM 11/03/22 04/05/24 History aspirin 81 mg tablet,delayed 81 mg PO QAM 11/20/22 04/05/24 History release carbidopa 25 mg-levodopa 100 mg 1 tab PO Q4H 05/06/23 09/19/24 History tablet acetaminophen 500 mg tablet 500 mg PO Q6H PRN Pain 11/25/22 04/05/24 History docusate sodium 100 mg capsule 100 mg PO BID 11/25/22 04/05/24 History mometasone 50 mcg/actuation nasal 2 spray intranasal DAILY #3 BTLS 04/11/23 04/05/24 Rx spray allopurinol 100 mg tablet 200 mg PO HS 09/26/23 04/05/24 History famotidine 40 mg tablet 40 mg PO HS 09/26/23 04/05/24 History ezetimibe 10 mg tablet 10 mg PO QAM #90 tabs 10/03/23 04/05/24 Rx esomeprazole magnesium 40 mg 40 mg PO BID #180 caps 02/07/24 04/05/24 Rx capsule,delayed release evolocumab 140 mg/mL subcutaneous 140 mg subcut Q14D #2 mL 03/06/24 04/05/24 Rx pen injector (Repatha SureClick) sulfamethoxazole 800 1 tab PO BID 7 days #14 tabs 04/05/24 04/05/24 Rx mg-trimethoprim 160 mg tablet (Bactrim DS) Past Med/Surg History Problem List (Updated 04/08/24 @ 21:45 by Gabriel Freed MD) Acute hyperkalemia (Acute) Edema of penis (Acute) Leukocytosis (Acute) Acute urinary obstruction (Acute) ARF (acute renal failure) (Acute) [place] coronary artery calcium score greater than 400 Gait disturbance Statin myopathy Health care maintenance Right thyroid nodule Restrictive airway disease Low ferritin Allergic rhinitis with postnasal drip Kyphosis Hypersomnia RLS (restless legs syndrome) Insomnia Excessive daytime sleepiness SOBOE (shortness of breath on exertion) Nocturnal hypoxemia Sleep disturbance Elevated blood pressure reading with diagnosis of hypertension Hyperglycemia Osteoarthritis (Acute) Aortic atherosclerosis Lumbar back pain Lichen simplex chronicus GERD (gastroesophageal reflux disease) Chronic acid suppression with PPI. EGD (2009) mild gastritis. Hx peptic ulcer disease. Hyperlipidemia Sialolithiasis Essential tremor BPH (benign prostatic hyperplasia) Hx urinary retention. Followed by urology (Dr. Jesus Caldwell [place], [place]). Chronically elevated PSAs, biopsy (2005) negative for malignancy. Managed medically with dutasteride Gout Parkinson disease (Acute) Coronary artery calcification (Acute) - CT study performed 03/27/2019: Calcium score 1104. angiography suggested 25-49 percent stenosis of the proximal and mid RCA. Calcium score in the LAD with 715, calcium score in the RCA was 387 the mid LAD was not evaluated due to heavy calcification. - Negative stress test 2019 - No ischemia on 2020 stress test but did not reach target HR Medical History Right inguinal hernia Cough 08/04/23- contines to have lingering cough but is improving. recently treated w/ Augmentin; completed abx 08/03/23 per pt (tested negative for Covid, flu and RSV on 07/27/23) Poor historian very difficult to understand History of shingles History of Lyme disease hx- treated Dyslipidemia History of peptic ulcer disease Eczema Hypertension Surgical History H/O right inguinal hernia repair (08/19/23) Hx of colonoscopy Hx of hernia repair H/O prostate biopsy Family History Father Heart disease Gout Myocardial infarction Mother Breast cancer Denies family history of Colon cancer Ovarian cancer Prostate cancer Social History Smoking Status: Unknown if ever smoked Second Hand Exposure: No; Do You Dip or Chew Tobacco: No; Hx Alcohol Use: Yes Hx Substance Use: No Preferred Language: Cymraes Communication Ability: Effective Visual Impairment: No Limitations Hearing Ability: Normal Carton Maker Required: No Beliefs That Will Affect Care: None marital status: Current Living Situation: Spouse current occupational status: employed current occupation: Professor Feels Safe at Home: Yes Childhood Exposure to Second-Hand Smoke: No Dental Care, Regularly: Yes Physical Activity Frequency: Daily Seatbelt Use: always Sunscreen Use: Yes Assistive Devices: Glasses Review of Systems Review of Systems: The patient denies chest pain, palpitations, shortness of breath, dyspnea on exertion, cough, lower extremity swelling, sore throat, fevers, chills, sweats, weight change, fatigue, nausea, vomiting, diarrhea , constipation, blood in urine or stool, lightheadedness, dizziness, headache, memory loss, loss of consciousness, rash, abnormal bruising or bleeding, imbalance, focal or generalized weakness, numbness or tingling in arms or legs, generalized arthralgias or myalgias, back or neck pain, or night sweats. The review of systems is otherwise negative other than for that already noted above, and at least 10 systems have been reviewed. Physical Exam Physical Exam: The patient is awake, alert and oriented 3, well developed and well nourished, normocephalic and atraumatic, lying in bed and in no acute distress. HEENT--PERRL, EOMI, mucous membranes and oropharynx mildly dry. Neck--supple. No JVD. No bruits. Thyroid normal, trachea midline, no adenopathy. Heart--normal S1 and S2. No murmurs, rubs or gallops. Lungs--clear bilaterally, no respiratory distress, no accessory muscle use. Abdomen--normal bowel sounds and soft. Nontender. Nondistended, no hernias or masses, no organomegaly. Extremities-- No edema. Dermatologic--normal skin turgor, normal color, no abnormal lymph nodes, no rash. Neurologic--cranial nerves II through XII grossly intact. Rheumatologic--normal range of motion. Psychiatric--normal affect. Results & Data Results & Data Vital Signs (Past 12 Hours) Vital Signs Temp Pulse Pulse Resp BP BP Pulse Ox 04/08/24 21:00 84 19 128/74 97 04/08/24 20:51 81 18 92 04/08/24 20:47 82 20 91 04/08/24 20:39 84 22 92 04/08/24 20:30 131/75 04/08/24 20:15 80 16 92 04/08/24 20:12 143/76 H 04/08/24 19:53 77 18 93 04/08/24 19:42 76 21 91 04/08/24 19:34 70 18 129/73 91 04/08/24 18:08 36.5 C 82 20 124/78 97 O2 Del Method 04/08/24 21:00 04/08/24 20:51 04/08/24 20:47 04/08/24 20:39 04/08/24 20:30 04/08/24 20:15 04/08/24 20:12 04/08/24 19:53 04/08/24 19:42 04/08/24 19:34 Room Air 04/08/24 18:08 Room Air Laboratory Results Laboratory Results WBC 12.51 K/ul (4.8-10.8) H 04/08/24 18:31 RBC 4.47 M/uL (4.70-6.10) L 04/08/24 18:31 Hgb 13.3 g/dl (14.0-18.0) L 04/08/24 18:31 Hct 39.3 % (42.0-52.0) L 04/08/24 18: MCV 87.9 fL (80.0-100.0) 04/08/24 18: MCH 29.8 pg (25.0-34.0) 04/08/24 18: MCHC 33.8 g/dL (32.0-36.0) 04/08/24 18: RDW Std Deviation 46.8 fL (36.4-46.3) H 04/08/24 18: RDW Coeff of Dwayne 14.5 % (11.5-14.5) 04/08/24 18: Plt Count 213 K/uL (130-400) 04/08/24 18: MPV 10.5 fL (9.4-12.4) 04/08/24 18: Immature Gran % (Auto) 0.3 % 04/08/24 18: Neut % (Auto) 74.2 % 04/08/24 18: Lymph % (Auto) 10.7 % 04/08/24 18: [place] % (Auto) 11.6 % 04/08/24 18: Eos % (Auto) 2.8 % 04/08/24 18:31 Baso % (Auto) 0.4 % 04/08/24 18:31 Neut # (Auto) 9.28 K/uL (1.40-6.50) H 04/08/24 18:31 Lymph # (Auto) 1.34 K/uL (1.20-3.40) 04/08/24 18: [place] # (Auto) 1.45 K/uL (0.11-0.59) H 04/08/24 18:31 Eos # (Auto) 0.35 K/uL (0.00-0.50) 04/08/24 18: Baso # (Auto) 0.05 K/uL (0.00-0.20) 04/08/24 18:31 Immature Gran # (Auto) 0.04 K/uL (0.01-0.20) 04/08/24 18:31 Sodium 132 mmol/L (136-145) L 04/08/24 18:31 Potassium 5.7 mmol/L (3.5-5.1) H 04/08/24 18:31 Chloride 96 mmol/L (98-107) L 04/08/24 18:31 Carbon Dioxide 24 mmol/L (21-32) 04/08/24 18:31 Anion Gap 12 (3-11) H 04/08/24 18:31 BUN 77 mg/dl (6-23) H 04/08/24 18:31 Creatinine 7.63 mg/dl (0.6-1.4) H* 04/08/24 18:31 Est Cr Clr Drug Dosing Not Reportable 04/08/24 18:31 Est GFR ( Amer) 7.3 ml/min 04/08/24 18:31 Est GFR (Non-Af Amer) 6.3 ml/min 04/08/24 18:31 BUN/Creatinine Ratio 10.1 (10-20) 04/08/24 18:31 Glucose 103 mg/dl (70-99(Fasting)) H 04/08/24 18:31 Lactate 1.0 mmol/L (0.4-2.0) 04/08/24 19:27 Calcium 9.8 mg/dl (8.6-10.3) 04/08/24 18:31 Magnesium 3.5 mg/dl (1.7-2.4) H 04/08/24 18:31 Total Bilirubin 0.5 mg/dl (0.2-1.0) 04/08/24 18:31 AST 24 U/L (13-39) 04/08/24 18:31 ALT 4 U/L (7-52) L 04/08/24 18:31 Alkaline Phosphatase 65 U/L (34-104) 04/08/24 18:31 Total Protein 7.0 gm/dl (6.0-8.3) 04/08/24 18:31 Albumin 4.3 gm/dl (3.4-5.0) 04/08/24 18:31 Globulin 2.7 gm/dl (2.5-4.0) 04/08/24 18:31 Albumin/Globulin Ratio 1.6 (0.9-2) 04/08/24 18:31 Urine Color Yellow 04/08/24 19:24 Urine Appearance Clear (Clear) 04/08/24 19:24 Urine pH 6.5 (4.5-7.5) 04/08/24 19:24 Ur Specific [place] 1.019 (1.000-1.030) 04/08/24 19:24 Urine Protein Negative (Negative) 04/08/24 19:24 Urine Glucose (UA) Negative (Negative) 04/08/24 19:24 Urine Ketones Negative (Negative) 04/08/24 19:24 Urine Blood Negative (Negative) 04/08/24 19:24 Urine Nitrite Negative (Negative) 04/08/24 19:24 Urine Bilirubin Negative (Negative) 04/08/24 19:24 Urine Urobilinogen Negative (Negative) 04/08/24 19:24 Ur Leukocyte Esterase Trace (Negative) H 04/08/24 19:24 Urine WBC (Auto) 0-5 /hpf (0-5) 04/08/24 19:24 Urine RBC (Auto) 3-5 /hpf (0-2) H 04/08/24 19:24 U Hyaline Cast (Auto) 0-2 /lpf (0-2) 04/08/24 19:24 U Epithel Cells (Auto) 0-2 /hpf (0-2) 04/08/24 19:24 Urine Bacteria (Auto) None Seen (None Seen) 04/08/24 19:24 Impressions Abdomen/Pelvis CT 04/08/24 19:11 Exam(s): CT ABDOMEN + PELVIS Without Contrast EXAM: CT Abdomen and Pelvis Without Intravenous Contrast CLINICAL HISTORY: Reason for exam: poss urinary obstruction. TECHNIQUE: Axial computed tomography images of the abdomen and pelvis without intravenous contrast. CTDI is 24.19 mGy and DLP is 1180.35 mGy-cm. Automated exposure control was utilized for the study. A dose lowering technique was utilized adhering to the principles of ALARA. COMPARISON: CT abdomen/pelvis: 11/20/2022 FINDINGS: Lung bases: Cardiomegaly. Bibasilar interval increased consolidative atelectasis/infiltrates.. Posteriorly trace right pleural effusion and left pleural thickening ABDOMEN: Analysis of abdominal/pelvic viscera and vascular structures is limited in absence of IV contrast. Liver: Unremarkable. Gallbladder and bile ducts: Unremarkable. No calcified stones. No ductal dilation. Pancreas: Diffusely mild/moderately atrophic pancreas. No ductal dilation. Spleen: No splenomegaly. Adrenals: Unremarkable. No mass. Kidneys and ureters: Mildly dilated bilateral extrarenal pelvis. Mild fullness of the right renal collecting system. No urinary tract calculi are seen. Bilateral perinephric fat stranding.. Stomach and bowel: A moderately large size hiatal hernia with organoaxial rotation . Normal caliber small bowel loops. Moderately large volume stool/gas is seen in a mildly distended ascending and transverse colon. Segmental diffuse spasm of the descending colon and sigmoid. Sigmoid diverticulosis. No evidence of acute diverticulitis PELVIS: Appendix: No acute findings in the region of the appendix. Bladder: There is an empty urinary bladder with a Ugarte's catheter in situ. Uniform bladder wall thickening and perivesical mild fat stranding, concerning for bladder outlet obstruction versus cystitis. Reproductive: Severe prostatomegaly with extension into the bladder base.. ABDOMEN and PELVIS: Intraperitoneal space: No free air. No significant fluid collection. Bones/joints: No acute fracture. No dislocation. Moderately severe lumbar levoscoliosis and multilevel advanced degenerative disc/endplates and posterior elements spondylosis.. Soft tissues: Anterior lower pelvic wall subcutaneous fat stranding. Likely a small right inguinal hernia. Vasculature: Diffuse atherosclerotic tortuosity/elongation and scattered calcified plaque formation of the normal caliber aortoiliac vasculature. Lymph nodes: No lymphadenopathy by CT size criteria. Multiple small bilateral inguinal/groin lymph nodes. IMPRESSION: No urinary tract calculi are seen. Mildly dilated bilateral extrarenal pelvis. Mild fullness of the right renal collecting system. Severe prostatomegaly. An empty urinary bladder with a Ugarte's catheter. Uniform bladder wall thickening and perivesical mild fat stranding, concerning for bladder outlet obstruction versus cystitis. Clinical correlation recommended. A moderately large size hiatal hernia. Moderately large volume stool/gas is seen in a mildly distended ascending and transverse colon. Sigmoid diverticulosis. Lung bases: Interval increase in bibasilar consolidative atelectasis/infiltrates. Moderately severe lumbar levoscoliosis. Multilevel advanced degenerative spondylosis. . Electronically signed by: Sandy Guadarrama MD, DABR 09/22/24 21:22 PM Code Status & VTE Plan Code Status Full code VTE Prophylaxis Plan VTE Prophylaxis will be ordered: Yes PG Care Time/CCT Total # of Minutes Spent Total Time Spent with Patient: Total time spent is greater than 50% in coordination of care (as documented) at patient's floor/unit and/or counseling patient: Coding Level of Care Code 05226 INT INP/OBS CARE 3/75MIN Diagnoses ARF (acute renal failure) N17.9 Acute renal failure type: unspecified Acute urinary obstruction N13.9 Acute hyperkalemia E87.5 Gait disturbance R26.9 GERD (gastroesophageal reflux disease) K21.9 Hyperlipidemia E78.5 BPH (benign prostatic hyperplasia) N40.0 Parkinson disease G20 Coronary artery calcification I25.10; I25.84 RLS (restless legs syndrome) G25.81 Nocturnal hypoxemia G47.34 (1) ARF (acute renal failure) Acute renal failure type: unspecified Qualified Code(s): N17.9 - Acute kidney failure, unspecified
[2024-04-08] MEDS ORDERED: ONDANSETRON INJ 2 MG/ML 2 ML VIAL IV PRN (23:45)
[2024-04-08] MEDS: FAMOTIDINE 40 MG TABLET PO STA (23:48)
[2024-04-08] MEDS: CARBIDOPA/LEVODOPA 25/100MG TAB PO STA (23:48)
[2024-04-08] MEDS: TERAZOSIN HCL 5 MG CAP PO STA (23:49)
[2024-04-08] MEDS: SODIUM CHLORIDE 0.9% 1,000 ML IV SCH (23:51)
[2024-04-08] MEDS: CARBIDOPA/LEVODOPA 25/100MG EXT REL TAB PO SCH (23:59)
[2024-04-09] MEDS: PANTOprazole 40 MG TAB PO STA (00:10)
[2024-04-09 06:37] LABS: Basophils # (auto) 0.04 K/uL (0.00-0.20); Basophils % (auto) 0.5 %; Eosinophils # (auto) 0.36 K/uL (0.00-0.50); Eosinophils % (auto) 4.6 %; Hematocrit (blood only) 36.9 % (42.0-52.0); Hemoglobin 12.3 g/dl (14.0-18.0); Immature Granulocytes # (auto) 0.02 K/uL (0.01-0.20); Immature Granulocytes % (auto) 0.3 %; Lymphocytes % (auto) 10.2 %; Mean Corpuscular Hemoglobin 29.4 pg (25.0-34.0); Mean Corpuscular Hgb Conc 33.3 g/dL (32.0-36.0); Mean Corpuscular Volume 88.3 fL (80.0-100.0); Mean Platelet Volume 10.9 fL (9.4-12.4); Monocytes # (auto) 0.86 K/uL (0.11-0.59); Monocytes % (auto) 10.9 %; Neutrophils % (auto) 73.5 %; Platelet Count 200 K/uL (130-400); RDW Coefficient of Variation 14.7 % (11.5-14.5); RDW Standard Deviation 47.4 fL (36.4-46.3); Red Blood Count 4.18 M/uL (4.70-6.10); White Blood Count 7.88 K/ul (4.8-10.8)
[2024-04-09 07:03] LABS: Albumin Level 3.7 gm/dl (3.4-5.0); BUN Creatinine Ratio 13.6 (10-20); Calcium 8.8 mg/dl (8.6-10.3); Creatinine Clr Calc Pharmacy 18.9 ml/min; Est GFR (African American) 18.2 ml/min; Est GFR (Non-African American) 15.7 ml/min; Magnesium 2.6 mg/dl (1.7-2.4); Phosphorus 4.7 mg/dl (2.5-4.9); Potassium 4.6 mmol/L (3.5-5.1)
[2024-04-09] MEDS: TERAZOSIN HCL 5 MG CAP PO SCH (08:44)
[2024-04-09] MEDS: PANTOprazole 40 MG TAB PO SCH (08:44)
[2024-04-09] MEDS: SELEGILINE HCL 5 MG TAB PO SCH (08:44)
[2024-04-09] MEDS: FLUTICASONE PROPIONATE NA SPR 16 GM BTL SCH (08:45)
[2024-04-09] MEDS: ASCORBIC ACID 500 MG TAB PO SCH (08:45)
--- NOTE | 2024-04-09 09:52 | Urology Consultation ---
Date of Consultation April 09, 2024 Assessment & Plan (1) BPH (benign prostatic hyperplasia): (2) ARF (acute renal failure): (3) Acute urinary retention: 73-year-old male admitted for acute urinary retention, acute renal failure and hyperkalemia. Patient afebrile, hemodynamically stable Alva catheter in place for management of urinary retention Lab work todaycreatinine improved to 3.59 (previously 7.63), WBC 7.88, hemoglobin 12.3 Urinalysis with trace LE, 3-5 RBC, otherwise negative Outpatient urine culture 04/05 showed 3 types of organisms present, all high counts probable skin isma Blood cultures 04/[address] abdomen pelvis showed mildly dilated bilateral extrarenal pelvis, mild fullness of the right renal collecting system, no urinary tract calculi seen; marked prostatomegaly Creatinine is improving with catheter in place, continue to trend labs Recommend maintain Alva catheter upon discharge Continue with dual therapy for BPH No acute intervention at this time We discussed bladder outlet procedures to address bladder outlet obstruction Recommend referral to a tertiary center for consideration of HoLEP given his significantly enlarged prostate (140 g prostate per urology note from 2019) Can arrange voiding trial outpatient with our service Continue antibiotics, supportive care and medical management per primary team will sign off, please contact our service with any additional questions or concerns History of Present Illness Reason for Consultation: enlarged prostate, LOYD, alva placed in ED, ARF Requesting Physician: Dr. Gamez Attending Physician: Марина Elias MD History of Present Illness This is a 73-year-old male past medical history of CAD, Parkinson disease, and BPH who presented to the emergency department on 04/08/2024 for evaluation of inability to void and fatigue. He had recently been prescribed Bactrim for UTI by his PCP. On arrival, he was afebrile and hemodynamically stable. Lab work was notable for creatinine of 7.63, sodium 132, potassium 5.7, WBC 12.51, hemoglobin 13.3. Urinalysis showed trace LE, 3-5 RBCs, otherwise negative. Workup included CT abdomen pelvis without contrast which demonstrated mildly dilated bilateral extrarenal pelvis. Mild fullness of the right renal collecting system. No urinary calculi seen. Alva catheter in place. Marked prostatomegaly. He was admitted to the hospital medicine service for acute urinary retention, acute renal failure, and hyperkalemia. Lab work today -creatinine 3.9, WBC 7.88, hemoglobin 12.3. Urine culture 04/05 showed 3 times organisms present, all high counts probable skin isma. Blood cultures are pending. Patient seen and examined at bedside this morning. He is awake and eating breakfast. Denies discomfort. Alva intact. No nausea, vomiting, fever or chills. He has been following with a urologist in [place] for BPH with LUTS, enlarged prostate, hx of elevated PSA. He has been on dual therapy with terazosin and dutasteride for several years. Denies personal or family history of bladder cancer. Allergies Allergy/AdvReac Type Severity Reaction Status Date / Time atorvastatin Allergy Unknown Muscle Pain Verified 04/05/24 15:38 procaine Allergy Unknown unknown Verified 04/05/24 15:38 simvastatin Allergy Unknown Muscle Pain Verified 04/05/24 15:38 Home Medications Medication Instructions Recorded Confirmed Type multivit with min-folic 1 tab PO QAM 02/08/19 04/09/24 History acid-lutein 400 mcg-250 mcg chewable tablet (Centrum Silver) calcium carbonate 600 mg PO QAM 02/13/19 04/09/24 History cholecalciferol (vitamin D3) 125 5,000 units PO QAM 02/13/19 04/09/24 History mcg (5,000 unit) capsule cyanocobalamin (vitamin B-12) 100 100 mcg PO QAM 02/13/19 04/09/24 History mcg tablet dutasteride 0.5 mg capsule 0.5 mg PO HS 02/13/19 04/09/24 History magnesium oxide 400 mg (241.3 mg 400 mg PO HS 02/13/19 04/09/24 History magnesium) tablet econazole 1 % topical cream 1 appln topical DAILY PRN itching 07/02/19 04/09/24 Rx #15 grams fluocinonide 0.1 % topical cream 1 appln topical BID PRN itching 07/02/19 04/09/24 Rx #60 grams Incentive Spirometer #1 ea 11/11/20 04/05/24 Rx ascorbate calcium (vitamin C) 500 500 mg PO QAM 11/27/20 04/09/24 History mg tablet ferrous sulfate 325 mg (65 mg 325 mg PO DAILY 11/27/20 04/09/24 History iron) tablet glucosamine HCl 1,500 mg tablet 1,500 mg PO BID 11/27/20 04/09/24 History selegiline HCl 5 mg capsule 0 mg PO QAM 11/03/22 04/09/24 History aspirin 81 mg tablet,delayed 81 mg PO QAM 11/20/22 04/09/24 History release carbidopa 25 mg-levodopa 100 mg 1 tab PO 5XD 11/20/22 04/09/24 History tablet acetaminophen 500 mg tablet 500 - 1,000 mg PO Q6H PRN Pain 11/25/22 04/09/24 History docusate sodium 100 mg capsule 100 mg PO BID 11/25/22 04/09/24 History mometasone 50 mcg/actuation nasal 2 spray intranasal DAILY #3 BTLS 04/11/23 04/09/24 Rx spray allopurinol 100 mg tablet 200 mg PO HS 09/26/23 04/09/24 History famotidine 40 mg tablet 40 mg PO HS 09/26/23 04/09/24 History ezetimibe 10 mg tablet 10 mg PO QAM #90 tabs 10/03/23 04/09/24 Rx esomeprazole magnesium 40 mg 40 mg PO BID #180 caps 02/07/24 04/09/24 Rx capsule,delayed release evolocumab 140 mg/mL subcutaneous 140 mg subcut Q14D #2 mL 03/06/24 04/09/24 Rx pen injector (Lily Garner) sulfamethoxazole 800 1 tab PO BID 7 days #14 tabs 04/05/24 04/09/24 Rx mg-trimethoprim 160 mg tablet (Bactrim DS) latanoprost 0.005 % eye drops 1 drp OPR HS 04/09/24 04/09/24 History terazosin 5 mg capsule 0 mg PO UD 04/09/24 04/09/24 History Patient History Medical History Right inguinal hernia Cough 08/04/23- contines to have lingering cough but is improving. recently treated w/ Augmentin; completed abx 08/03/23 per pt (tested negative for Covid, flu and RSV on 07/27/23) Poor historian very difficult to understand History of shingles History of Lyme disease hx- treated Dyslipidemia History of peptic ulcer disease Eczema Hypertension Surgical History H/O right inguinal hernia repair (08/19/23) Right Open Inguinal Hernia Repair with Mesh(Right) - Jonathan Covington, DO Hx of colonoscopy Hx of hernia repair H/O prostate biopsy Family History Father Heart disease Gout Myocardial infarction Mother Breast cancer Denies family history of Colon cancer Ovarian cancer Prostate cancer Social History Smoking Status: Never smoker Second Hand Exposure: No; Do You Dip or Chew Tobacco: No; Hx Alcohol Use: Yes Alcohol type: beer, wine and hard liquor Hx Substance Use: No Preferred Language: [place] Communication Ability: Effective Visual Impairment: No Limitations Hearing Ability: Normal Warp Tier Required: No Beliefs That Will Affect Care: None marital status: Current Living Situation: Spouse current occupational status: employed current occupation: Professor Feels Safe at Home: Yes Childhood Exposure to Second-Hand Smoke: No Dental Care, Regularly: Yes Physical Activity Frequency: Daily Seatbelt Use: always Sunscreen Use: Yes Assistive Devices: Glasses Review of Systems Review of Systems: All systems reviewed & are unremarkable except as noted in HPI & below Physical Exam Constitutional: well developed and well nourished; no acute distress Respiratory: normal respiratory effort; no respiratory distress and no labored breathing Gastrointestinal (Abdomen): Inspection/Auscultation: abdomen normal to inspection Musculoskeletal: Head/Neck/Chest: normocephalic Neurologic: moves all extremities and awake Psychiatric: Orientation: alert and oriented x 3 Genitourinary: Alva patent and draining clear yellow urine Results & Data Vital Signs (Past 12 Hours) Vital Signs Temp Pulse Pulse Pulse Resp BP BP 04/09/24 08:47 04/09/24 07:51 36.5 C 70 16 134/81 04/09/24 07:16 73 04/09/24 03:08 36.7 C 75 16 121/69 04/08/24 23:59 36.3 C L 72 18 138/76 04/08/24 23:33 70 04/08/24 23:21 36.3 C L 72 18 138/76 04/08/24 22:50 76 04/08/24 22:41 76 18 04/08/24 22:32 76 19 04/08/24 22:30 116/70 04/08/24 22:29 76 22 04/08/24 22:23 75 16 04/08/24 22:11 78 21 04/08/24 22:00 80 20 04/08/24 22:00 127/83 04/08/24 22:00 127/83 Pulse Ox O2 Del Method 04/09/24 08:47 Room Air 04/09/24 07:51 91 Room Air 04/09/24 07:16 04/09/24 03:08 94 Room Air 04/08/24 23:59 91 Room Air 04/08/24 23:33 04/08/24 23:21 91 Room Air 04/08/24 22:50 04/08/24 22:41 90 04/08/24 22:32 04/08/24 22:30 04/08/24 22:29 90 04/08/24 22:23 87 L 04/08/24 22:11 90 04/08/24 22:00 91 04/08/24 22:00 04/08/24 22:00 PG Care Time/CCT Total # of Minutes Spent Total Time Spent with Patient: Total time spent is greater than 50% in coordination of care (as documented) at patient's floor/unit and/or counseling patient: Coding Level of Care Code 52342 INT INP/OBS CARE 2/55MIN Diagnoses BPH (benign prostatic hyperplasia) N40.0 ARF (acute renal failure) N17.9 Acute renal failure type: unspecified Acute urinary retention R33.8 (2) ARF (acute renal failure) Acute renal failure type: unspecified Qualified Code(s): N17.9 - Acute kidney failure, unspecified
[2024-04-09] MEDS: LATANOPROST 0.005% OP SOLN 2.5 ML BTL OP SCH (14:46)
--- NOTE | 2024-04-09 15:25 | Hospitalist Progress Note ---
Date of Service April 09, 2024 Assessment & Plan (1) ARF (acute renal failure): (2) Acute urinary obstruction: (3) Acute hyperkalemia: (4) BPH (benign prostatic hyperplasia): (5) Parkinson disease: (6) Coronary artery calcification: (7) Nocturnal hypoxemia: Plan 73-year-old man with BPH admitted with bladder outlet obstruction, acute kidney injury, hyperkalemia. He had been on Bactrim for about 3 days prior to admission Acute renal failure/BPH with LUTS/acute urinary retention/hyperkalemia- Creatinine upon admission 7.63, with baseline 1.10. potassium 5.7 - these of both improved creatinine down to 3's with excellent urine output hyperkalemia resolved, will continue IV fluids and Ugarte catheter - anticipate LUCIUS will resolve entirely within 1 to 3 days. watch for postobstructive diuresis - urinalysis was negative will stop cefepime. blood culture was sent by ED - pending - consulted urologist recommended continuing Ugarte catheter, can follow-up with urology locally for voiding trial, recommended referral to tertiary care: "Recommend referral to a tertiary center for consideration of HoLEP given his significantly enlarged prostate (140 g prostate per urology note from 2019)" - continue terazosin and dutasteride ( not on formulary but may use from own supply if he brings it in) - a.m. BMP and magnesium. magnesium level was elevated yesterday but improved to 2.6 hyponatremia resolved with above treatment, IV fluids. 137 today Parkinson's- Continue carbidopa-levodopa, and selegiline GERD- Changing omeprazole to pantoprazole, and continue famotidine Gout- Continue allopurinol early glaucomaordered his usual Xalatan drops DVT prophylaxis- ordered SQ heparin I am updated his today Admission and Anticipated Discharge Date Admission Date: April 08, 2024 Subjective He does feel better no abdominal pain or shortness of breath he has questions about various prostate procedures which I defer to the urologist making a good amount of urine already this morning Physical Exam 2 Physical Exam: PHYSICAL EXAMINATION Last 24h vital signs reviewed, see documentation in flowsheet General: comfortable appearing, no distress HEENT: Normocephalic, atraumatic, pupils round and equal, sclerae anicteric, no conjunctival injection, moist mucus membranes Lungs: Normal respiratory effort. Clear to auscultation bilaterally. No RRW Heart: Regular rate and rhythm, no murmurs. No JVD Abdomen: Soft, nontender, nondistended. Bowel sounds present. Extremities: Warm, dry, well-perfused. No extremity edema. : Ugarte catheter in place draining a large amount of clear light yellow urine Neuro: Alert and oriented x 4, face symmetric, moves 4 extremities well Psych: Normal affect and behavior Results & Data Results & Data Vital Signs (Past 12 Hours) Vital Signs Temp Pulse Pulse Resp BP Pulse Ox O2 Del Method 04/09/24 14:07 71 04/09/24 11:04 36.7 C 73 16 129/74 92 Room Air 04/09/24 08:47 Room Air 04/09/24 07:51 36.5 C 70 16 134/81 91 Room Air 04/09/24 07:16 73 Laboratory Results 04/09/24 06:02 04/09/24 06:02 PG Care Time/CCT Total # of Minutes Spent Total Time Spent with Patient: Total time spent is greater than 50% in coordination of care (as documented) at patient's floor/unit and/or counseling patient: Coding Level of Care Code 23809 SUB INP/OBS CARE 2/35MIN Diagnoses ARF (acute renal failure) N17.9 Acute renal failure type: unspecified Acute urinary obstruction N13.9 Acute hyperkalemia E87.5 BPH (benign prostatic hyperplasia) N40.0 Parkinson disease G20 Coronary artery calcification I25.10; I25.84 Nocturnal hypoxemia G47.34 (1) ARF (acute renal failure) Acute renal failure type: unspecified Qualified Code(s): N17.9 - Acute kidney failure, unspecified
[2024-04-09] MEDS ORDERED: CEFEPIME 1,000 MG in SYRINGE 0 ML IV SCH (18:00)
[2024-04-09] MEDS: HEPARIN SOD 5,000 UNIT/0.5 ML VIAL SQ SCH (22:04)
[2024-04-09] MEDS: allopurinoL 100 MG TAB PO SCH (22:05)
[2024-04-09] MEDS: FINASTERIDE 5 MG TAB PO SCH (22:06)
[2024-04-09] MEDS: FAMOTIDINE 40 MG TABLET PO SCH (22:06)
[2024-04-10 07:11] LABS: Basophils # (auto) 0.06 K/uL (0.00-0.20); Basophils % (auto) 0.8 %; Eosinophils # (auto) 0.34 K/uL (0.00-0.50); Eosinophils % (auto) 4.6 %; Hematocrit (blood only) 37.8 % (42.0-52.0); Hemoglobin 12.9 g/dl (14.0-18.0); Immature Granulocytes # (auto) 0.02 K/uL (0.01-0.20); Immature Granulocytes % (auto) 0.3 %; Lymphocytes # (auto) 0.98 K/uL (1.20-3.40); Lymphocytes % (auto) 13.3 %; Mean Corpuscular Hemoglobin 29.8 pg (25.0-34.0); Mean Corpuscular Hgb Conc 34.1 g/dL (32.0-36.0); Mean Corpuscular Volume 87.3 fL (80.0-100.0); Mean Platelet Volume 10.9 fL (9.4-12.4); Monocytes # (auto) 0.82 K/uL (0.11-0.59); Monocytes % (auto) 11.2 %; Neutrophils # (auto) 5.13 K/uL (1.40-6.50); Neutrophils % (auto) 69.8 %; Platelet Count 207 K/uL (130-400); RDW Coefficient of Variation 14.2 % (11.5-14.5); RDW Standard Deviation 45.6 fL (36.4-46.3); Red Blood Count 4.33 M/uL (4.70-6.10); White Blood Count 7.35 K/ul (4.8-10.8)
[2024-04-10 07:28] LABS: Albumin Level 3.7 gm/dl (3.4-5.0); BUN Creatinine Ratio 15.9 (10-20); Calcium 8.8 mg/dl (8.6-10.3); Creatinine Clr Calc Pharmacy 46.2 ml/min; Est GFR (African American) 54.6 ml/min; Est GFR (Non-African American) 47.1 ml/min; Phosphorus 3.7 mg/dl (2.5-4.9); Potassium 4.3 mmol/L (3.5-5.1)
[2024-04-10] MEDS: POLYETHYLENE (MIRALAX) 17 GM PACK PO SCH (09:06)
[2024-04-10] MEDS: SENNA 8.6 MG TAB PO SCH (09:06)
--- NOTE | 2024-04-10 14:45 | Hospitalist Progress Note ---
Date of Service April 10, 2024 Assessment & Plan (1) ARF (acute renal failure): Plan: obstructive, 2nd to severe BPH creatinine upon admission 7.63, with baseline 1.10. potassium 5.7 LUCIUS resolved hyperkalemia resolved Cr today 1.4 can stop IV fluids later tonight BMP in am (2) Acute urinary obstruction: Plan: 2nd to severe BPH resolved s/p alva insertion at admission cont dual agents for BPH, but ultimately needs surgery for such (3) Acute hyperkalemia: Plan: 2nd to LUCIUS in the setting of bactrim use resolved (4) BPH (benign prostatic hyperplasia): Plan: severe with bladder outlet obstruction from such cont finasteride cont terazosin cont alva (placed at time of admission) appreciate [facility] Urology assistance they advise [facility] discussed this with him today in detail (5) Parkinson disease: Plan: cont sinemet cont selegiline (6) Coronary artery calcification: Plan: known issue follows with Dr Elmer Salinas cont Repatha for lipids (7) Pulmonary emboli: Plan: with recent trip to [facility] and his o2 sats of ~90% in room air along with report of dyspnea CTA chest obtained - this showed extensive b/l PEs will obtain b/l LE venous dopplers to be complete his travel along with probable poor mobility from his PD likely to blame for VTE start heparin drip will investigate cost of DOAC tomorrow (8) Hypoxia: Plan: 2nd to #7 NC o2 as needed Plan Constipation - add miralax with senna GERD - cont PPI, cont famotidine Gout - cont allopurinol Early glaucoma cont Xalatan drops DVT prophylaxis - stopping SC heparin since changing to heparin drip as above will update his when able Admission and Anticipated Discharge Date Admission Date: April 08, 2024 Subjective patient sleeping upon arrival easily awakens to his name being called reports feeling unsteady when trying to get up denies any GI or complaints today alva draining clear yellow urine patient reports having traveled to [facility] in early March, was there for 2 weeks, then returned to the [place] by plane he mentions some vague dyspnea o2 sats in room air have been ranging 89-91% but he states "it's always like that" Review of Systems Review of Systems: cv - no chest pain, no orthopnea pulm - no cough GI - no abd pain, having issues with stool Physical Exam Physical Exam: gen - NAD, no respiratory distress, difficult to understand his speech at times mouth - MMM neck - no JVD heart - RRR, s1 s2, no murmur lungs - CTA b/l abd - soft NT ND BS+ ext - no edema, pulses 2+ b/l psych - oriented? Results & Data Results & Data Vital Signs (Past 12 Hours) Vital Signs Temp Pulse Pulse Resp BP Pulse Ox O2 Del Method 04/10/24 14:26 65 04/10/24 12:26 36.3 C L 66 16 132/82 89 L Room Air 04/10/24 10:46 36.7 C 65 16 118/72 91 Room Air 04/10/24 07:35 Room Air 04/10/24 07:21 36.7 C 70 14 148/78 H 91 Room Air 04/10/24 07:04 56 L Laboratory Results Laboratory Results 04/10/24 04/10/24 06:26 16:55 WBC 7.35 7.43 RBC 4.33 L 4.22 L Hgb 12.9 L 12.6 L Hct 37.8 L 36.7 L MCV 87.3 87.0 MCH 29.8 29.9 MCHC 34.1 34.3 RDW Std Deviation 45.6 44.9 RDW Coeff of Dwayne 14.2 14.1 Plt Count 207 190 MPV 10.9 10.7 Immature Gran % (Auto) 0.3 0.1 Neut % (Auto) 69.8 68.5 Lymph % (Auto) 13.3 14.8 [place] % (Auto) 11.2 12.7 Eos % (Auto) 4.6 3.4 Baso % (Auto) 0.8 0.5 Neut # (Auto) 5.13 5.09 Lymph # (Auto) 0.98 L 1.10 L [place] # (Auto) 0.82 H 0.94 H Eos # (Auto) 0.34 0.25 Baso # (Auto) 0.06 0.04 Immature Gran # (Auto) 0.02 0.01 PT 10.7 INR 1.0 APTT 28 PTT Ratio 1.0 Heparin Anti-Xa, Unfract Sodium 138 Potassium 4.3 Chloride 106 Carbon Dioxide 24 Anion Gap 8 BUN 23 D Creatinine 1.45 H D Est Cr Clr Drug Dosing 46.2 Est GFR ( Amer) 54.6 Est GFR (Non-Af Amer) 47.1 BUN/Creatinine Ratio 15.9 Glucose 97 Calcium 8.8 Phosphorus 3.7 D Magnesium 2.0 Albumin 3.7 PG Care Time/CCT Total # of Minutes Spent Total Time Spent with Patient: Total time spent is greater than 50% in coordination of care (as documented) at patient's floor/unit and/or counseling patient: Coding Level of Care Code 53242 SUB INP/OBS CARE 3/50MIN Diagnoses ARF (acute renal failure) N17.9 Acute renal failure type: unspecified Acute urinary obstruction N13.9 Acute hyperkalemia E87.5 BPH (benign prostatic hyperplasia) N40.0 Parkinson disease G20 Coronary artery calcification I25.10; I25.84 Pulmonary emboli I26.99 Hypoxia R09.02 (1) ARF (acute renal failure) Acute renal failure type: unspecified Qualified Code(s): N17.9 - Acute kidney failure, unspecified
[2024-04-10] MEDS: OPTIRAY 320 125ml IV ONE (15:38)
--- NOTE | 2024-04-10 15:54 | CT Scan Report ---
CT ANGIOGRAM OF THE CHEST CLINICAL HISTORY: Dyspnea. Hypoxia. COMPARISON STUDY: Chest x-ray dated 12/29/2022. Chest CT dated 11/20/2022. TECHNIQUE: Following the IV administration of 118 cc of Optiray 320, CT angiogram of the chest was pe rformed from the upper abdomen to the thoracic inlet utilizing the pulmonary embolus protocol. Images are reviewed in the axial, sagittal, and coronal planes. 3-D MIPS images are created and assessed. I V contrast was administered without complication. A dose lowering technique was utilized adhering to the principles of ALARA. The examination is severely degraded by motion artifact. CT DOSE: 722.28 mGy.cm FINDINGS: Thyroid: The thyroid gland is enlarged and heterogeneous, typical for goiter. Thoracic aorta: There is atherosclerotic calcification of the thoracic aorta, which is normal in gat[place] yan[place] and demonstrates 4-vessel variant arch anatomy. The thoracic aorta is not well opacified. Pulmonary vasculature: The main pulmonary arteries are dilated suggesting pulmonary artery hypertensi on. There is pulmonary embolus within the right upper lobe pulmonary artery. This extends into segmen patric and subsegmental branches. There is pulmonary embolus within the left upper lobe pulmonary artery which extends into segmental and subsegmental branches. There is also pulmonary embolus within segme ntal branches of the left lower lobe and lingular pulmonary arteries. The right lower lobe vessels ar e not well opacified due to motion artifact. Heart: The heart is enlarged and without pericardial effusion. The coronary arteries are densely calc ified. Lungs and pleural spaces: Evaluation of the lung parenchyma is compromised by motion artifact. There are small pleural effusions with dependent atelectasis. The trachea and central airways appear clear. Mediastinum: There is no mediastinal lymphadenopathy. Raya: Clear. Axillae: There is no axillary lymphadenopathy. Upper abdomen: There is a small to moderate hiatal hernia. Partially visualized upper abdominal visce ra is within normal limits. Skeletal structures: The skeletal structures are osteopenic. No lytic or blastic bony lesions are see n. Degenerative changes and kyphoscoliosis is noted in the thoracic spine. Arthritic change is seen i n the shoulders. There are chronic/healed right-sided rib fractures. Soft tissues: Gynecomastia is noted. IMPRESSION: 1. Extensive bilateral pulmonary embolus as above. 2. Cardiomegaly and small pleural effusions. 3. Hiatal hernia. 4. Additional findings as above. ACT 112: Negative or not required by law. Electronically signed by: Gabriel Andino M.D. 04/10/2024 3:53 PM
[2024-04-10] MEDS ORDERED: Heparin IV Adult Wt-Based Standard w/ INITIAL Bolus Protocol IV SCH (16:06)
[2024-04-10 17:19] LABS: Basophils # (auto) 0.04 K/uL (0.00-0.20); Basophils % (auto) 0.5 %; Eosinophils # (auto) 0.25 K/uL (0.00-0.50); Eosinophils % (auto) 3.4 %; Hematocrit (blood only) 36.7 % (42.0-52.0); Hemoglobin 12.6 g/dl (14.0-18.0); Immature Granulocytes # (auto) 0.01 K/uL (0.01-0.20); Immature Granulocytes % (auto) 0.1 %; Lymphocytes % (auto) 14.8 %; Mean Corpuscular Hemoglobin 29.9 pg (25.0-34.0); Mean Corpuscular Hgb Conc 34.3 g/dL (32.0-36.0); Mean Platelet Volume 10.7 fL (9.4-12.4); Monocytes # (auto) 0.94 K/uL (0.11-0.59); Monocytes % (auto) 12.7 %; Neutrophils # (auto) 5.09 K/uL (1.40-6.50); Neutrophils % (auto) 68.5 %; Platelet Count 190 K/uL (130-400); RDW Coefficient of Variation 14.1 % (11.5-14.5); RDW Standard Deviation 44.9 fL (36.4-46.3); Red Blood Count 4.22 M/uL (4.70-6.10); White Blood Count 7.43 K/ul (4.8-10.8)
[2024-04-10 17:47] LABS: Partial Thromboplastin Time 28 Seconds (21-31); Prothrombin Time 10.7 Seconds (9.0-12.0)
[2024-04-10] MEDS: HEPARIN SODIUM/DEXTROSE 25,000 UNITS/500 ML BAG IV SCH (17:54)
[2024-04-10] MEDS: HEPARIN SOD (PORCINE) 1000 UNIT/ML IV ONE (17:54)
--- NOTE | 2024-04-11 00:53 | Ultrasound Report ---
Exam(s): US VENOUS BILATERAL LOWER EXTREMITIES EXAM: US Duplex Bilateral Lower Extremities Veins CLINICAL HISTORY: Reason for exam: b/l PEs. TECHNIQUE: Real-time duplex ultrasound scan of the bilateral lower extremity veins integrating B-mode two-dimensional vascular structure, Doppler spectral analysis, color flow Doppler imaging and compression. COMPARISON: No relevant prior studies available. FINDINGS: Right deep veins: DVT in the right popliteal and peroneal veins. Right common femoral and superficial femoral veins are patent. Right superficial veins: Unremarkable. No thrombus in the visualized right great saphenous vein. Left deep veins: Unremarkable. No DVT in the left common femoral, femoral, proximal deep femoral or popliteal veins. The veins demonstrate normal color flow, are normally compressible, with normal phasic flow and/or augmentation response. Left superficial veins: Unremarkable. No thrombus in the visualized left great saphenous vein. Soft tissues: No acute abnormality. No popliteal cyst. IMPRESSION: Deep venous thrombosis involving the right popliteal and peroneal veins. Communications: Call Doctor DVT acute, progressing Electronically signed by: Luis Snider M.D. 04/11/24 00:52 AM
[2024-04-11 01:36] LABS: ANTI-Xa, UFH(UnfractionatedHep 0.57 IU/ml (0.3-0.7)
[2024-04-11 06:59] LABS: Albumin Level 3.5 gm/dl (3.4-5.0); BUN Creatinine Ratio 13.4 (10-20); Calcium 8.7 mg/dl (8.6-10.3); Creatinine Clr Calc Pharmacy 57.1 ml/min; Est GFR (African American) 69.3 ml/min; Est GFR (Non-African American) 59.8 ml/min; Phosphorus 3.3 mg/dl (2.5-4.9); Potassium 4.2 mmol/L (3.5-5.1)
[2024-04-11 07:11] LABS: ANTI-Xa, UFH(UnfractionatedHep 0.49 IU/ml (0.3-0.7)
[2024-04-11] MEDS: MAGNESIUM CITRATE 296 ML/BTL PO STA (10:14)
[2024-04-11] MEDS: ACETAMINOPHEN 325 MG TAB PO PRN (13:02)
[2024-04-11] MEDS: APIXABAN 5 MG TABLET PO SCH (20:09)
--- NOTE | 2024-04-11 22:05 | Hospitalist Progress Note ---
Date of Service April 11, 2024 Assessment & Plan (1) ARF (acute renal failure): Plan: obstructive, 2nd to severe BPH creatinine upon admission 7.63, with baseline 1.10. potassium 5.7 LUCIUS resolved hyperkalemia resolved Cr today 1.1 can stop fluids can stop serial BMPs cont alva now and upon discharge (2) Acute urinary obstruction: Plan: 2nd to severe BPH resolved s/p alva insertion at admission cont dual agents for BPH, but ultimately needs surgery for such leave alva in at discharge (3) Acute hyperkalemia: Plan: 2nd to LUCIUS in the setting of bactrim use resolved (4) BPH (benign prostatic hyperplasia): Plan: severe with bladder outlet obstruction from such cont finasteride cont terazosin cont alva (placed at time of admission, and will continue at discharge from hospital) appreciate [facility] assistance they advise referral to tertiary care center for consideration of HoLEP surgery I discussed this with him and his today in detail (5) Parkinson disease: Plan: cont sinemet cont selegiline passed PT/OT evals home PT/OT advised by therapy (6) Coronary artery calcification: Plan: known issue follows with Dr Elmer Salinas cont Lily for lipids (7) Pulmonary emboli: Plan: with recent trip to [facility] and his o2 sats of ~90% in room air along with report of dyspnea CTA chest obtained - this showed extensive b/l PEs LE venous dopplers with RLE DVTs his travel along with probable poor mobility from his PD likely to blame for VTE s/p heparin drip since 04/10 cost of Eliquis will be inexpensive for him transition to Eliquis 10mg BID starting tonight stop heparin drip plan at least 6 months of Rx (8) Hypoxia: Plan: 2nd to #7 NC o2 as needed consider 2-step at discharge (9) Right leg DVT: Plan: venous duplex study positive for right popliteal & right peroneal vein DVTs currently on heparin drip to transition to PO Eliquis this evening risk factor(s) - frequent air travel including trip to [place] earlier this month, ?ambulatory dysfunction due to PD? Plan Constipation - gave mag citrate this am; multiple BMs since then * cont miralax with senna for maintenance GERD - cont PPI, cont famotidine Gout - cont allopurinol Early glaucoma cont Xalatan drops DVT prophylaxis - Eliquis updated pt's extensively at bedside today passed PT/OT evals; home PT/OT evals recommended by therapy, however discharge home tomorrow? Admission and Anticipated Discharge Date Admission Date: April 08, 2024 Subjective no events overnight had mag citrate this am -- MULTIPLE BMs following such abdomen feels better following the BMs denies any dyspnea had some mild leg cramps today alva remains in place w/o hematuria eating well at bedside during the visit Review of Systems Review of Systems: CV - no chest pain pulm - no cough GI - no abd pain or N/V Physical Exam Physical Exam: gen - NAD, sitting in chair, no respiratory distress mouth - MMM neck - no JVD heart - RRR, s1 s2, no murmur lungs - CTA b/l abd - soft NT ND BS+ ext - trace edema RLE, no edema on LLE; pulses 2+ b/l Results & Data Results & Data Vital Signs (Past 12 Hours) Vital Signs Temp Pulse Pulse Resp BP Pulse Ox Pulse Ox 04/11/24 20:48 04/11/24 20:20 36.6 C 67 16 104/63 91 04/11/24 16:35 36.5 C 64 18 121/81 92 04/11/24 15:06 95 04/11/24 14:57 73 04/11/24 13:12 91 04/11/24 12:10 36.7 C 68 16 137/87 92 04/11/24 11:07 Pulse Ox Pulse Ox O2 Del Method O2 Flow Rate O2 Flow Rate O2 Flow Rate 04/11/24 20:48 Room Air 04/11/24 20:20 Room Air 04/11/24 16:35 Room Air 04/11/24 15:06 04/11/24 14:57 04/11/24 13:12 91 89 L 0 0 0 04/11/24 12:10 Room Air 04/11/24 11:07 Room Air Laboratory Results Laboratory Results - last 24 hr 04/11/24 04/11/24 00:38 05:58 Heparin Anti-Xa, Unfract 0.57 0.49 Sodium 138 Potassium 4.2 Chloride 107 Carbon Dioxide 25 Anion Gap 6 BUN 16 Creatinine 1.19 Est Cr Clr Drug Dosing 57.1 Est GFR ( Amer) 69.3 Est GFR (Non-Af Amer) 59.8 BUN/Creatinine Ratio 13.4 Glucose 105 H Calcium 8.7 Phosphorus 3.3 Albumin 3.5 Diagnostic Findings Venous Doppler Study 04/10/24 16:01 CR Exam(s): US VENOUS BILATERAL LOWER EXTREMITIES EXAM: US Duplex Bilateral Lower Extremities Veins CLINICAL HISTORY: Reason for exam: b/l PEs. TECHNIQUE: Real-time duplex ultrasound scan of the bilateral lower extremity veins integrating B-mode two-dimensional vascular structure, Doppler spectral analysis, color flow Doppler imaging and compression. COMPARISON: No relevant prior studies available. FINDINGS: Right deep veins: DVT in the right popliteal and peroneal veins. Right common femoral and superficial femoral veins are patent. Right superficial veins: Unremarkable. No thrombus in the visualized right great saphenous vein. Left deep veins: Unremarkable. No DVT in the left common femoral, femoral, proximal deep femoral or popliteal veins. The veins demonstrate normal color flow, are normally compressible, with normal phasic flow and/or augmentation response. Left superficial veins: Unremarkable. No thrombus in the visualized left great saphenous vein. Soft tissues: No acute abnormality. No popliteal cyst. IMPRESSION: Deep venous thrombosis involving the right popliteal and peroneal veins. Communications: Call Doctor DVT acute, progressing Electronically signed by: Luis Snider M.D. 04/11/24 00:52 AM PG Care Time/CCT Total # of Minutes Spent Total Time Spent with Patient: Total time spent is greater than 50% in coordination of care (as documented) at patient's floor/unit and/or counseling patient: Coding Level of Care Code 72647 SUB INP/OBS CARE 3/50MIN Diagnoses ARF (acute renal failure) N17.9 Acute renal failure type: unspecified Acute urinary obstruction N13.9 Acute hyperkalemia E87.5 BPH (benign prostatic hyperplasia) N40.0 Parkinson disease G20 Coronary artery calcification I25.10; I25.84 Pulmonary emboli I26.99 Hypoxia R09.02 Right leg DVT I82.401 (1) ARF (acute renal failure) Acute renal failure type: unspecified Qualified Code(s): N17.9 - Acute kidney failure, unspecified
[2024-04-12 03:47] VITALS: O2SAT 92
[2024-04-12 07:52] VITALS: RESP 16; TEMP 98.4
[2024-04-12 13:12] VITALS: BP 131/84
[2024-04-12 14:06] VITALS: PULSE 62
--- NOTE | 2024-04-12 16:02 | XCELERA ---
[id number]
--- NOTE | 2024-04-12 17:49 | Magnetic Resonance Report ---
MRI OF THE BRAIN WITHOUT IV CONTRAST CLINICAL HISTORY: Strokelike symptoms. COMPARISON STUDY: CT of the brain dated 11/20/2022. TECHNIQUE: MRI of the brain was performed utilizing various T1 and T2-weighted sequences in the axial , sagittal, and coronal planes. IV contrast was not administered for this examination. FINDINGS: Brain parenchyma: There is age-related involutional change noting minimal microangiopathic disease. T here is no hemorrhage or mass effect. There is no restricted diffusion to suggest acute ischemia. Min eralization is noted in the basal ganglia. Gardner-white matter differentiation is preserved. No extra-a xial fluid collection is seen. The cerebellar tonsils are normal in configuration. Ventricles, sulci, and cisterns: Prominent secondary to involutional change. Pituitary and sella: Unremarkable. Intracranial vasculature: Normal flow voids are maintained at the skull base. Orbits: The bony orbits are grossly intact. Orbital contents are normal in appearance. Sinuses and mastoids: Clear. Calvarium: Unremarkable. Cervical cord: Partially visualized cervical spinal cord is normal in morphology and signal intensity . IMPRESSION: No acute intracranial abnormality. ACT 112: Negative or not required by law. Electronically signed by: Gabriel Andino M.D. 04/12/2024 5:48 PM
--- NOTE | 2024-04-12 18:25 | Discharge Summary ---
Discharge Summary Date of Service April 12, 2024 Principal Dx & Hospital Course #1 = Principal Diagnosis (1) ARF (acute renal failure): obstructive, 2nd to severe BPH creatinine upon admission 7.63, with baseline 1.10. potassium 5.7 LUCIUS resolved hyperkalemia resolved Cr today 1.1 can stop fluids can stop serial BMPs cont alva now and upon discharge (2) Acute urinary obstruction: 2nd to severe BPH resolved s/p alva insertion at admission cont dual agents for BPH, but ultimately needs surgery for such leave alva in at discharge (3) Acute hyperkalemia: 2nd to LUCIUS in the setting of bactrim use resolved (4) BPH (benign prostatic hyperplasia): severe with bladder outlet obstruction from such cont finasteride cont terazosin cont alva (placed at time of admission, and will continue at discharge from hospital) appreciate [facility] [place] they advise referral to tertiary care center for consideration of HoLEP surgery I discussed this with him and his today in detail (5) Parkinson disease: cont sinemet cont selegiline passed PT/OT evals home PT/OT advised by therapy (6) Coronary artery calcification: known issue follows with Dr Elmer Salinas cont Repatha for lipids (7) Pulmonary emboli: with recent trip to [facility] and his o2 sats of ~90% in room air along with report of dyspnea CTA chest obtained - this showed extensive b/l PEs LE venous dopplers with RLE DVTs his travel along with probable poor mobility from his PD likely to blame for VTE s/p heparin drip since 04/10 cost of Eliquis will be inexpensive for him transition to Eliquis 10mg BID starting tonight stop heparin drip plan at least 6 months of Rx (8) Hypoxia: 2nd to #7 NC o2 as needed consider 2-step at discharge (9) Right leg DVT: venous duplex study positive for right popliteal & right peroneal vein DVTs currently on heparin drip to transition to PO Eliquis this evening risk factor(s) - frequent air travel including trip to [place] earlier this month, ?ambulatory dysfunction due to PD? Plan Constipation - gave mag citrate this am; multiple BMs since then * cont miralax with senna for maintenance GERD - cont PPI, cont famotidine Gout - cont allopurinol Early glaucoma cont Xalatan drops DVT prophylaxis - Eliquis updated pt's extensively at bedside today passed PT/OT evals; home PT/OT evals recommended by therapy, however discharge home tomorrow? Admission HPI Per Admitting Provider The patient is a 73-year-old male with a past medical history including gait disturbance, statin myopathy, right thyroid nodule, restrictive airway disease, allergic rhinitis, RLS, excessive daytime sleepiness, GERD, hyperlipidemia, BPH, gout, Parkinson disease and coronary artery calcification. He presents to the emergency department with concerns regarding increased difficulty to urinate over the past several days. He had been to see his outpatient doctor 3 days ago and was placed on Bactrim, which has been taking for 3 days. In the emergency department, he had a Alva catheter placed, and began to drain light yellow- colored urine. Discharge Exam gen - NAD, sitting in chair, no respiratory distress mouth - MMM neck - no JVD heart - RRR, s1 s2, no murmur lungs - CTA b/l abd - soft NT ND BS+ ext - trace edema RLE, no edema on LLE; pulses 2+ b/l Discharge Plan Discharge Items Patient Disposition: Home - Home Health Services Reason For Visit: ACUTE RENAL FAILURE Discharge Diagnosis: 1. acute renal failure due to obstruction of urine flow by enlarged prostate; acute renal failure resolved 2. markedly enlarged prostate gland ("BPH") with need for alva catheter placement 3. right leg deep venous thrombosis (DVT) 4. bilateral pulmonary emboli 5. low-normal oxygen levels due to #4 6. MRI brain negative for old or new stroke 7. patent foramen ovale (tiny hole in upper portion of the heart) Activity: As commented below Activity Comment: gradually increase your activities over the next 7 days Non-emergency contact: Primary Care Provider and Specialist Call non-emergency contact if: you have any medication questions, your symptoms worsen and you have a fever Follow-up/Referrals: Abbe An MD [Primary Care Provider] - 04/23/24 3:00 pm Frieda Reynolds CRNP [Nurse Practitioner] - 04/23/24 8:30 am Diet: Regular Addtl Attending Provider Instructions: Dr Melgar, You were hospitalized due to difficulty urinating as a result of enlarged prostate gland. This led to urinary retention and a steep rise in your creatinine, or kidney function level in the blood. A alva catheter was placed into the bladder relieving the urinary retention/build-up of urine. With IV fluids, the alva catheter, and time your creatinine improved down to normal (peak of 7.6, down to 1.1 by time of discharge). You are making excellent urine and your catheter is working well. [facility] saw you in consult and they will be seeing you in the near- future in the office to manage the catheter. They will attempt to remove it in a couple of weeks in the clinic. They will also be referring you to [facility] to ultimately have surgery on your prostate gland. During the stay we noted that your oxygen levels were low or low-normal. In light of your recent travel to [place] we performed a CT scan of your lungs to rule out blood clots. Unfortunately this did indeed show numerous blood clots throughout both lungs. We call these Pulmonary Emboli. Pulmonary emboli typically start in the legs as a DVT blood clot. Your ultrasounds of your legs did show DVT blood clots in the RIGHT leg. Thus, during your travels, you likely developed the clots in the right leg. These then broke off, traveled through your circulation, and deposited in the lungs. You have been started on a blood thinning medication called "Eliquis" twice daily for the clots. MRI brain was negative for any old or new stroke. Echocardiogram showed normal heart function and, incidentally, a tiny hole in t he upper portion of the heart called a "patent foramen ovale" (PFO). About 20% of the population have a PFO. You were born with this. There is nothing to do for the PFO at this time. See handout for more information. Recommendations - 1. Alva catheter care - see handouts. Drain as needed. 2. Eliquis blood thinner medicine - * take 10mg (2 tablets of 5mg each) TWICE DAILY x 6 days starting TONIGHT, then -- * REDUCE the dose to 5mg TWICE DAILY thereafter; start the lower dose on April 18 with your evening dose 3. we checked your oxygen levels with walking and at this time you do NOT need any supplemental oxygen for your home. 4. please discontinue your aspirin at this time. Followup - see separate section Return to [facility] if - * you are having bleeding from any location as described below * you are having worsening shortness of breath * you have chest pains * you have any concerns about your alva catheter * you have fever over 100 degrees * any other concerns It was our pleasure to care for you! Addtl Relay Technician Provider Instructions: Anticoagulation (Blood Thinner) Medication Instructions: Your DVT & Pulmonary Embolism condition is typically treated with an anticoagulant. Anticoagulants will thin your blood to help prevent new clots. Your blood thinner is called ELIQUIS. You will likely have to take this medicine for at least 6 months, possibly longer. * You should take your medication exactly as directed. * Never skip a dose. * Never take a double dose. If you miss a dose, take it as soon as you remember. Call your Primary Care doctor if you experience any of the following: * Swelling or Pain in your leg * Sudden, continuous pain deep in a muscle * Pain that worsens when you are active or when you stand still for a long time * Chest Pain * Sudden Shortness of Breath * Rapid or pounding heart beat * Fainting * Dizziness * Cough with blood or bloody sputum * Sweating more than normal * Bruises * Heavy or uncontrolled bleeding * Blood in your urine, stool or vomit * Black or tarry stools * Heavy nose bleeding Caring for Your Self at Home: * Avoid sitting, standing or lying down for long periods without moving your legs and feet * When traveling by car, stop to get out and move around at least once every 3 hours * On long airplane, train or bus rides, get up and move around when possible * If you can't get up, wiggle your toes and tighten your calves to keep your blood moving Pending Studies at Discharge: No Stand-Alone Forms: [facility], Smoking Cessation Medications and DC Order Prescriptions: New Eliquis 5 mg tablet 5 mg PO BID Qty: 60 5RF Continued mometasone 50 mcg/actuation spray,non-aerosol 2 spray intranasal DAILY Qty: 3 3RF Rx Instructions: administer into each nostril ezetimibe 10 mg tablet 10 mg PO QAM Qty: 90 3RF esomeprazole magnesium 40 mg capsule,delayed release(DR/EC) 40 mg PO BID Qty: 180 3RF Repatha SureClick 140 mg/mL pen injector 140 mg subcut Q14D Qty: 2 5RF acetaminophen 500 mg tablet 500 - 1,000 mg PO Q6H PRN (Reason: Pain) Rx Instructions: Unable to verify OTC meds at this date/time. docusate sodium 100 mg capsule 100 mg PO BID Rx Instructions: Unable to verify OTC meds at this date/time. Centrum Silver 400-250 mcg tablet,chewable 1 tab PO QAM Rx Instructions: Unable to verify OTC meds at this date/time. glucosamine HCl 1,500 mg tablet 1,500 mg PO BID Rx Instructions: Unable to verify OTC meds at this date/time. (DME) Incentive Spirometer Misc See Rx Instructions .MEDSUPPLY Qty: 1 0RF Rx Instructions: As directed calcium carbonate 600 mg calcium (1,500 mg) tablet 600 mg PO QAM Rx Instructions: Unable to verify OTC meds at this date/time. cholecalciferol (vitamin D3) 5,000 unit capsule 5,000 units PO QAM Rx Instructions: Unable to verify OTC meds at this date/time. cyanocobalamin (vitamin B-12) 100 mcg tablet 100 mcg PO QAM Rx Instructions: Unable to verify OTC meds at this date/time. dutasteride 0.5 mg capsule 0.5 mg PO HS magnesium oxide 400 mg (241.3 mg magnesium) tablet 400 mg PO HS Rx Instructions: Unable to verify OTC meds at this date/time. econazole 1 % cream 1 appln TOP DAILY PRN (Reason: itching) Qty: 15 0RF fluocinonide 0.1 % cream 1 appln TOP BID PRN (Reason: itching) Qty: 60 1RF ferrous sulfate 325 mg (65 mg iron) tablet 325 mg PO DAILY Rx Instructions: Unable to verify OTC meds at this date/time. ascorbate calcium (vitamin C) 500 mg tablet 500 mg PO QAM Rx Instructions: Unable to verify OTC meds at this date/time. carbidopa-levodopa 25-100 mg tablet 1 tab PO 5XD Rx Instructions: Take 1 tablet by mouth 5 times daily famotidine 40 mg tablet 40 mg PO HS allopurinol 100 mg tablet 200 mg PO HS latanoprost 0.005 % drops 1 drp OPR HS Changed terazosin 5 mg capsule 10 mg PO BID Qty: 0 0RF selegiline HCl 5 mg capsule 5 mg PO QAM Qty: 0 0RF Patient Comments: currently on hold for procedures Discontinued sulfamethoxazole-trimethoprim [Bactrim DS] 800-160 mg tablet 1 tab PO BID 7 Days Qty: 14 0RF Rx Instructions: Start Date 04/05/24 x7 day supply aspirin 81 mg Tablet,Delayed Release (Dr/Ec) 81 mg PO QAM Rx Instructions: Unable to verify OTC meds at this date/time. Discharge Orders: Discharge Order (Routine); Ordered 04/12/24 Ordered By: Konstantin Galelgos/Other Patient Handouts: Patent Foramen Ovale, Understanding Deep Vein Thrombosis, Pulmonary Embolism, Benign Prostatic Hyperplasia, ED Alva Catheter, Care, ED Urinary Retention, Male Admission Data Admit Date/Time: 04/08/24 22:23 Attending Provider: Konstantin Nazario Admit Provider: Alli Gamez Primary Care Provider: Abbe An V. Other Providers: Alli Gamez; Taqueria Mathews Other Interventions: Discharge Summary Assessment (RN) Last Done: 04/12/24 13:11 Hospital Stay Data Consultations 04/08/24 21:35 ED Decision to Admit Stat 04/08/24 22:23 Consult Urology Routine Diagnostic Imagining Performed 04/08/24 19:11 CT abd pelvis wo con Stat 04/10/24 14:43 CT angio chest PE protocol Routine 04/10/24 16:01 US venous doppler LE BI Urgent 04/12/24 16:38 MR brain wo con Urgent Pending Results Patient Have Any Pending Studies at Discharge: No Discharge Instructions Given to Patient (Per Discharging Provider) Dr Melgar, You were hospitalized due to difficulty urinating as a result of enlarged prostate gland. This led to urinary retention and a steep rise in your creatinine, or kidney fu nction level in the blood. A alva catheter was placed into the bladder relieving the urinary retention/build-up of urine. With IV fluids, the alva catheter, and time your creatinine improved down to normal (peak of 7.6, down to 1.1 by time of discharge). You are making excellent urine and your catheter is working well. [facility] saw you in consult and they will be seeing you in the near- future in the office to manage the catheter. They will attempt to remove it in a couple of weeks in the clinic. They will also be referring you to [facility] to ultimately have surgery on your prostate gland. During the stay we noted that your oxygen levels were low or low-normal. In light of your recent travel to [place] we performed a CT scan of your lungs to rule out blood clots. Unfortunately this did indeed show numerous blood clots throughout both lungs. We call these Pulmonary Emboli. Pulmonary emboli typically start in the legs as a DVT blood clot. Your ultrasounds of your legs did show DVT blood clots in the RIGHT leg. Thus, during your travels, you likely developed the clots in the right leg. These then broke off, traveled through your circulation, and deposited in the lungs. You have been started on a blood thinning medication called "Eliquis" twice daily for the clots. MRI brain was negative for any old or new stroke. Echocardiogram showed normal heart function and, incidentally, a tiny hole in the upper portion of the heart called a "patent foramen ovale" (PFO). About 20% of the population have a PFO. You were born with this. There is nothing to do for the PFO at this time. See handout for more information. Recommendations - 1. Alva catheter care - see handouts. Drain as needed. 2. Eliquis blood thinner medicine - * take 10mg (2 tablets of 5mg each) TWICE DAILY x 6 days starting TONIGHT, then -- * REDUCE the dose to 5mg TWICE DAILY thereafter; start the lower dose on April 18 with your evening dose 3. we checked your oxygen levels with walking and at this time you do NOT need any supplemental oxygen for your home. 4. please discontinue your aspirin at this time. Followup - see separate section Return to [facility] if - * you are having bleeding from any location as described below * you are having worsening shortness of breath * you have chest pains * you have any concerns about your alva catheter * you have fever over 100 degrees * any other concerns It was our pleasure to care for you! Coding Diagnoses ARF (acute renal failure) N17.9 Acute renal failure type: unspecified Acute urinary obstruction N13.9 Acute hyperkalemia E87.5 BPH (benign prostatic hyperplasia) N40.0 Parkinson disease G20 Coronary artery calcification I25.10; I25.84 Pulmonary emboli I26.99 Hypoxia R09.02 Right leg DVT I82.401
== END 2024-04-12 18:48 | disposition home health service (06) | DRG 698 ==
LOC: ED 17:54 → SUATTDRO 22:23 → 2N 22:23